=== PATIENT | male | born 1950 | race Caucasian/White ===

== ENCOUNTER 2017-02-08 07:38 | Inpatient (IN) ==
[2017-02-08] MEDS ORDERED: Nitroglycerin 0.4 MG TAB.SUBL SL PRN (10:28)
--- NOTE | 2017-02-08 10:48 | History & Physical Report ---
Date of Encounter: 02/08/17 Time of Encounter: 10:41 24 Hour HP Update - Instructions Instructions: If the History and Physical is less than 30 days old and was completed prior to A.M. admission and or procedure and has NOT been updated on calendar day of procedure please complete this update prior to performing procedure. - Update Patient reports changes in Medical Condition: No Changes in examination, assessment, or condition: No Changes in Medication: No - Attending Attestation Please use eCW encounter from 02/02/[address] Marco Antonio Vargas as H&P. Pt with hx of CAD and symptomatic PAF, presents for antiarrhythmic initiation-- Sotalol. HR this AM 50s at bedside. He is on Coreg 6.25 BID and Nifedipine 30mg daily, both of which he had this AM. Will give decreased dose of Sotalol 40mg this AM since HR is borderline. Will hold Coreg and increase Sotalol to 80mg [id number] starting this evening. Pt will need monitored for 5 doses. Check CBC and BMP. Check daily EKGs to monitor QTc. QTc this AM 398ms, Sinus alysa. Possible PPM if HR will not tolerate antiarrhythmic therapy. Anticoagulated on Pradaxa, recently switched from Coumadin to Pradaxa. Was subtherapeutic in the past month on Coumadin. Previous testing: Lexiscan nuclear stress test 02/26/2016: EF 64%. Negative for ischemia. Holter monitor 01/17/2017: Paroxysmal atrial fibrillation 6.9% of recording time. Rare PVCs and occasional PACs. TTE 01/17/2017: LVEF 55%. Normal LV size and function. Moderate diastolic dysfunction. Normal RV size and function. No significant valvular dysfunction. No pulmonary hypertension.
[2017-02-08 11:20] LABS: Basophils % 0.4 %; Eosinophils # 0.1 K/mcL (0.0-0.6); Eosinophils % 2.4 %; Hematocrit 36.3 % (37.5-50.1); Hemoglobin 12.3 g/dL (12.9-16.9); Immature Granulocytes % 2.8 % (0-4); Immature Platelets 1.7 % (1.1-6.1); Lymphocytes # 1.4 K/mcL (0.6-4.6); Lymphocytes % 27.2 %; Mean Corpuscular HGB Conc 33.9 g/dL (31.6-35.5); Mean Corpuscular Hemoglobin 30.9 pg (28.0-33.3); Mean Corpuscular Volume 91.2 fL (83.0-100.0); Mean Platelet Volume 9.1 fL (9.4-12.4); Monocytes # 0.6 K/mcL (0.0-1.3); Monocytes % 11.7 %; Neutrophils # 2.8 K/mcL (1.6-8.9); Nucleated Red Blood Cells 0.4 /100 WBC (0); Platelet Count 167 K/mcL (140-400); Red Blood Count 3.98 M/mcL (4.19-5.50); Red Cell Distribution Width 16.2 % (11.5-14.5); Segmented Neutrophils % 55.5 %
[2017-02-08 11:26] LABS: BUN/Creatinine Ratio 20 (6-26); Blood Urea Nitrogen 25 mg/dL (8-26); Carbon Dioxide 21 mEq/L (19-29); Chloride 109 mEq/L (98-109); Glucose 100 mg/dL (70-99); Osmolality,Calculated 290 (280-300); Potassium 4.3 mEq/L (3.5-4.5); Sodium 138 mEq/L (136-145); eGFR For African Americans > 60 (> 60); eGFR For Non-African Americans 57 (> 60)
--- NOTE | 2017-02-08 14:47 | Event Note ---
Date of Encounter: 02/08/17 Time of Encounter: 14:44 - Cardiology Event Note Labs resulted. Creatinine 1.27. Creatinine clearance 72.79. Since creatinine clearance is >60, will continue BID dosing of Sotalol. Re-evaluate in AM. Check daily BMPs. Hx of fluctuating renal function.
--- NOTE | 2017-02-08 17:08 | Electrocardiograph Report ---
[place] [address] Test Date: 2017-02-08 Pat Name: Armando Yoon Department: 110 Room: 08 Gender: M Pressurizer: LING : 1950 Requested By: Marco Antonio Vargas Order Number: [id number] Reading MD: Sarah Vargas Measurements Intervals [place] Rate: 50 P: 42 MA: 135 QRS: 66 QRSD: 100 T: 55 QT: 424 QTc: 398 Interpretive Statements SINUS BRADYCARDIA Electronically Signed On 02-08-2017 17:07:21 EDT by Sarah Vargas
[2017-02-08] MEDS: Ranolazine 500 MG TAB.ER.12H PO SCH (21:50)
[2017-02-08] MEDS: Aspirin 81 MG TAB.CHEW PO SCH (21:50)
[2017-02-08] MEDS: *HR* Dabigatran 150 MG CAPSULE PO SCH (21:50)
[2017-02-08] MEDS: Isosorbide MONOnitrate (24 HR) 30 MG TAB.ER.24H PO SCH (21:52)
[2017-02-09 06:22] LABS: BUN/Creatinine Ratio 20 (6-26); Blood Urea Nitrogen 23 mg/dL (8-26); Calcium 8.8 mg/dL (8.6-10.8); Carbon Dioxide 21 mEq/L (19-29); Chloride 110 mEq/L (98-109); Glucose 96 mg/dL (70-99); Osmolality,Calculated 294 (280-300); Potassium 4.2 mEq/L (3.5-4.5); Sodium 140 mEq/L (136-145); eGFR For African Americans > 60 (> 60); eGFR For Non-African Americans > 60 (> 60)
[2017-02-09] MEDS: NIFEdipine XL (24 HR) 30 MG TAB.ER.24 PO SCH (10:11)
[2017-02-09] MEDS: Ranolazine 500 MG TAB.ER.12H PO SCH ×2 (10:11→21:57)
[2017-02-09] MEDS: Isosorbide MONOnitrate (24 HR) 30 MG TAB.ER.24H PO SCH ×2 (10:11→21:57)
[2017-02-09] MEDS: *HR* Dabigatran 150 MG CAPSULE PO SCH ×2 (10:11→21:57)
[2017-02-09] MEDS: Cyanocobalamin (B-12) 1,000 MCG TABLET PO SCH (10:11)
--- NOTE | 2017-02-09 10:14 | Cardiology Progress Note ---
Date of Encounter: 02/09/17 Time of Encounter: 10:11 Assessment and Plan (1) PAF (paroxysmal atrial fibrillation) Current Visit: Yes Status: Acute Admitted for Sotalol initiation for symptomatic PAF. Pt has received 2 doses of Sotalol. Initial dose was 40mg since he was bradycardic and had taken his home dose of Coreg. Increased Sotalol to 80mg [id number] at 2nd dose and beyond. Coreg stopped. On Nifedipine 30mg daily. Pt had episode of PAF ~7PM-9PM last night, has since remained in sinus rhythm. Daily EKGs reviewed. QTc remains <500ms. Will monitor for 5 doses. 5th dose will be tomorrow AM. Creatinine yesterday 1.27, normalized/improved today 1.14. Check BMP in AM. Negative stress test 02/26/16. Echo 01/17/17 EF 55%, no significant valvular dysfunction. 24 hour tele AVG HR 56, lowest HR noted 44. PPM had been discussed if unable to tolerate antiarrhythmic therapy. No need for PPM at this time. Anticoagulated on Pradaxa, recently switched from Coumadin to Pradaxa. Was subtherapeutic in the past month on Coumadin. Tentative discharge in AM. (2) Encounter for monitoring anti-arrhythmic therapy Current Visit: Yes Status: Acute As above. (3) CAD (coronary artery disease) Current Visit: No Status: Chronic Known hx of CAD. ASA, Statin, BB, nitrates. Pt denies chest pain. Negative stress in 2014. Qualifiers: Coronary Disease-Associated Artery/Lesion type: unspecified vessel or lesion type [place] vs. transplanted heart: [place] heart Associated angina: angina presence unspecified Qualified Code(s): I25.10 - Atherosclerotic heart disease of [place] coronary artery without angina pectoris Discussion w patient/family: The assessment and plan as outlined above was discussed with the patient and/or family members who expressed understanding and agreement. All questions were answered. Thank you for involving us in the care of your patient. Please call with any questions. I will discuss all the above with Dr. Marco Antonio Vargas and make changes as necessary. Subjective Principal diagnosis: A-Fib, antiarrhythmic initiation Interval history: Pt reports feeling better than usual this AM. He had episode of A-Fib from ~7PM- 9PM last night. He could tell he was in A-Fib during that time. Has since been in sinus rhythm. Has received 2 doses of Sotalol. Renal function normalized this AM. Objective Vital Signs, Last 4 Hours Temp Pulse Resp BP Pulse Ox 02/09/17 09:58 49 02/09/17 07:40 97.4 F L 53 16 133/73 94 Vital Signs Temp Pulse Resp BP Pulse Ox 02/09/17 09:58 49 02/09/17 07:40 97.4 F L 53 16 133/73 94 02/09/17 04:47 47 16 93 02/09/17 04:13 97.7 F 52 16 130/78 93 02/09/17 00:42 51 17 127/68 93 02/08/17 23:50 98.2 F 56 17 127/68 93 02/08/17 21:36 97.7 F 57 18 93 02/08/17 19:42 97.7 F 79 18 138/91 93 02/08/17 15:52 50 02/08/17 15:20 98.0 F 54 18 139/76 93 02/08/17 11:27 97.2 F L 53 16 122/73 93 02/08/17 10:41 53 94 Intake and Output 02/08/17 02/09/17 02/09/17 23:59 07:59 15:59 Intake Total 500 / 500 480 / 480 Output Total 1350 / 1350 800 / 800 Balance -850 / -850 -320 / -320 Intake: Oral 500 / 500 480 / 480 Output: Urine 1350 / 1350 800 / 800 Other: Meal Breakfast Percent of Meal Consumed 95% Weight 90.1 kg 89.3 kg Patient Weight 02/09/17 23:59 Weight 89.3 kg General: Conversant, No Apparent Distress HEENT: Atraumatic, Normocephaly, Mucus Membranes Moist Neck: No JVD, Normal carotid pulses Cardiac: Reg Rate and Rhythm, Normal S1 and S2, No Murmur Lungs: Normal Breath Sounds, No Wheeze, Rales, Rhonchi Neuro: Alert and responsive, No focal deficits noted Abdomen: Soft, Non-Tender Skin: No rashes noted on visualized skin Musculoskeletal: No Chest Wall Tenderness Extremities: No Clubbing, No Cyanosis, No Edema, Normal Pulses Results 02/08/17 11:04 02/09/17 05:45 Lab Results 05/06/1902/08/17 02/09/17 11:04 11:04 05:45 WBC 5.0 Hgb 12.3 L Hct 36.3 L Plt Count 167 Sodium 138 140 Potassium 4.3 4.2 Chloride 109 110 H Carbon Dioxide 21 21 BUN 25 23 Creatinine 1.27 H 1.14 Glucose 100 H 96 Calcium 9.0 8.8 Short CBC 02/08/17 Range/Units 11:04 WBC 5.0 (4.3-11.1) K/mcL Hgb 12.3 L (12.9-16.9) g/dL Hct 36.3 L (37.5-50.1) % Plt Count 167 (140-400) K/mcL Neutrophils # 2.8 (1.6-8.9) K/mcL BMP 02/09/17 02/08/17 Range/Units 05:45 11:04 Sodium 140 138 (136-145) mEq/L Potassium 4.2 4.3 (3.5-4.5) mEq/L Chloride 110 H 109 (98-109) mEq/L Carbon Dioxide 21 21 (19-29) mEq/L BUN 23 25 (8-26) mg/dL Creatinine 1.14 1.27 H (0.72-1.25) mg/dL Glucose 96 100 H (70-99) mg/dL Calcium 8.8 9.0 (8.6-10.8) mg/dL Active Medications Albuterol Sulfate (Albuterol Inhaler) 2 puff IH Q4HR PRN PRN Reason: Shortness Of Breath Stop: 08/10/17 10:29 Aspirin (Aspirin) 81 mg PO HS [facility] Stop: 08/10/17 21:01 Last Admin: 02/08/17 21:50 Dose: 81 mg Atorvastatin Calcium (Lipitor) 40 mg PO HS [facility] Stop: 08/10/17 21:01 Last Admin: 02/08/17 21:52 Dose: 40 mg Cyanocobalamin (Vitamin B12) 1,000 mcg PO DAILY [facility] Stop: 08/11/17 09:01 Dabigatran (Pradaxa) 150 mg PO BID [facility] Stop: 08/10/17 21:01 Last Admin: 02/08/17 21:50 Dose: 150 mg Isosorbide Mononitrate (Imdur) 30 mg PO BID [facility] Stop: 08/10/17 21:01 Last Admin: 02/08/17 21:52 Dose: 30 mg Montelukast Sodium (Singulair) 10 mg PO HS [facility] Stop: 08/10/17 21:01 Last Admin: 02/08/17 21:51 Dose: 10 mg Nifedipine (Procardia Xl) 30 mg PO DAILY [facility] Stop: 08/11/17 09:01 Nitroglycerin (Nitroglycerin) 0.4 mg SL Q5MIN PRN PRN Reason: Chest Pain Stop: 08/10/17 10:29 Omeprazole (Prilosec) 20 mg PO DAILY [facility] PRN Reason: Protocol Stop: 08/11/17 09:01 Polyethylene Glycol (Miralax) 17 gm PO DAILY PRN PRN Reason: Constipation Stop: 08/10/17 10:29 Ranolazine (Ranexa) 1,000 mg PO BID [facility] Stop: 08/10/17 21:01 Last Admin: 02/08/17 21:50 Dose: 1,000 mg Sertraline HCl (Zoloft) 50 mg PO DAILY [facility] Stop: 08/11/17 09:01 Sotalol HCl (Betapace) 80 mg PO Q12H [facility] Stop: 08/10/17 22:01 Last Admin: 02/08/17 21:51 Dose: 80 mg - Imaging and Cardiology Stress Test: report reviewed Echo: report reviewed - EKG Interpretation EKG results cardiology: other (24 hour tele AVG HR 56. A-Fib 7PM-9PM. Lowest HR 44.) - VTE Reasons for not Prescribing Prophylaxis: Not indicated-Anticoagulated or INR therapeutic Consult Discharge Plan - Plan Referrals: Ana Cristina Hall DO [Primary Care Provider] -
--- NOTE | 2017-02-09 15:25 | Electrocardiograph Report ---
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
--- NOTE | 2017-02-09 15:26 | Electrocardiograph Report ---
[place] [address] Test Date: 2017-02-09 Pat Name: rAmando Yoon Department: 110 Room: 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
[2017-02-09] MEDS: Aspirin 81 MG TAB.CHEW PO SCH (21:57)
[2017-02-10] MEDS: Ranolazine 500 MG TAB.ER.12H PO SCH (09:26)
[2017-02-10] MEDS: *HR* Dabigatran 150 MG CAPSULE PO SCH (09:26)
[2017-02-10] MEDS: NIFEdipine XL (24 HR) 30 MG TAB.ER.24 PO SCH (09:26)
[2017-02-10] MEDS: Isosorbide MONOnitrate (24 HR) 30 MG TAB.ER.24H PO SCH (09:27)
[2017-02-10] MEDS: Cyanocobalamin (B-12) 1,000 MCG TABLET PO SCH (09:27)
[2017-02-10 11:11] VITALS: BP 126/75
--- NOTE | 2017-02-10 12:24 | Discharge Summary ---
Date of Encounter: 02/10/17 Time of Encounter: 09:00 - Discharge Diagnosis (1) PAF (paroxysmal atrial fibrillation) Priority: Primary Status: Acute Comments: s/p admission for sotalol initiation. (2) Encounter for monitoring anti-arrhythmic therapy Priority: Primary Status: Acute (3) CAD (coronary artery disease) Priority: Secondary Status: Chronic Qualifiers: Coronary Disease-Associated Artery/Lesion type: [place] artery [place] vs. transplanted heart: [place] heart Associated angina: without angina Qualified Code(s): I25.10 - Atherosclerotic heart disease of [place] coronary artery without angina pectoris - Discharge Medications Prescriptions: Sotalol [Betapace] 80 mg PO Q12H #60 tablet Home Medications: Atorvastatin [Lipitor] 40 mg PO HS 03/22/16 [History] Isosorbide MONOnitrate (24 HR) [Imdur] 60 mg PO BID 03/22/16 [History] Montelukast [Singulair] 10 mg PO HS 03/22/16 [History] NIFEdipine [Nifedipine ER] 30 mg PO QAM 03/22/16 [History] Nitroglycerin 0.4 mg SL Q5MIN PRN 03/22/16 [History] Omeprazole [PriLOSEC] 20 mg PO DAILY 03/22/16 [History] Polyethylene Glycol 3350 [MiraLAX] 17 gm PO DAILY PRN 03/22/16 [History] Ranolazine [Ranexa] 1,000 mg PO BID 03/22/16 [History] Sertraline [Zoloft] 50 mg PO QAM 03/22/16 [History] Albuterol Sulfate [Albuterol Inhaler] 2 puff IH Q4HR PRN 09/10/16 [History] Aspirin 81 mg PO HS 09/10/16 [History] Cyanocobalamin (Vitamin B-12) [Vitamin B12] 1,000 mcg PO DAILY 02/08/17 [History ] Dabigatran [Pradaxa] 150 mg PO BID 02/08/17 [History] Sotalol [Betapace] 80 mg PO Q12H #60 tablet 02/10/17 [Rx] Allergies/Adverse Reactions: Allergies apixaban [From Eliquis] Allergy (Verified 02/08/17 10:26) Rash Procedures/tests Complete & Pending: Procedures Performed prior 72 hours Category Date Time Status ECG 12 lead ECG [ECG] Routine Y 02/08/17 08:43 Completed ECG 12 lead ECG [ECG] Routine Y 02/08/17 19:12 Completed ECG 12 lead ECG [ECG] Routine Y 02/09/17 00:16 Completed EKG [ECG 12 lead ECG] [ECG] AM 0600 Y 02/09/17 06:00 Completed EKG [ECG 12 lead ECG] [ECG] AM 0600 Y 02/10/17 06:00 Completed Date of admission: 02/08/17 07:38 Primary care physician: Kimmy Manuel Discharging clinician: Michelle Evans Anticipated date of discharge: 02/10/17 - Patient Status Disposition: Home, Self-Care Condition: Good Functional capacity at discharge: independent ambulation Overall status at discharge: patient is back to baseline - Discharge Instructions Follow Up With: Ana Cristina Hall DO [Primary Care Provider] - Marco Antonio Vargas MD [Partnered Physician] - 02/25/17 12:15 pm - Diet and Activity Activity: increase activity as tolerated, resume usual activities as tolerated Diet: low fat, low cholesterol, low salt diet - Hospital Course Hospital course: Mr. Yoon is a 66 year old male who presented to [facility] on 02/08/17 for sotalol initiation due to symptomatic PAF. Coreg was discontinued due to sinus bradycardia. QT/QTc has remained less than 500 ms during hospitalization. Fifth dose of sotalol given this morning, ECG prior to discharge demonstrated QT/QTc of 446,398. Brief episodes of PAF yesterday evening. Telemetry review overnight , avg HR=56 SB, upon exam earlier this morning HR upper 40's--he remained asymptomatic; prior to discharge, HR in the low 60's. SCr stable. He has been anticoagulated on Pradaxa. He has no complaints upon exam this morning and is being prepped for discharge to home in stable condition. He will follow-up with CHELITA Suh, as scheduled on 02/25/17 at 12:15 PM. Instructed to keep BP/HR log at home and bring to follow-up appointment. The patient was discussed and reviewed with Dr. Marco Antonio Vargas who agrees with plan. Encouraged patient to call office with any concerns. - Time Spent with Patient Total time spent providing and/or coordinating discharge services: Less than 30 minutes Specific discharge activities: resume activity as tolerated Physical Examination Vital Signs, Last 4 Hours Temp Pulse Resp BP Pulse Ox 02/10/17 11:09 97.7 F 50 18 126/75 96 02/10/17 11:00 49 General: Conversant, No Apparent Distress HEENT: Atraumatic, Normocephaly, Mucus Membranes Moist Cardiac: Reg Rate and Rhythm, Normal S1 and S2 Lungs: Normal Breath Sounds, No Wheeze, Rales, Rhonchi Neuro: Alert and responsive, No focal deficits noted Abdomen: Soft, Non-Tender Skin: No rashes noted on visualized skin Musculoskeletal: No Chest Wall Tenderness Extremities: No Edema, Normal Pulses - VTE Reasons for not Prescribing Prophylaxis: Not indicated-Anticoagulated or INR therapeutic
--- NOTE | 2017-02-10 15:26 | Electrocardiograph Report ---
[place] [address] Test Date: 2017-02-09 Pat Name: Armando Yoon Department: 110 Room: [facility] Gender: M Medical Dir: [id number] : 1950 Requested By: Isaiah Carrasco Order Number: [id number] Reading MD: Marco Antonio Vargas Measurements Intervals [place] Rate: 46 P: 14 MO: 159 QRS: -10 QRSD: 95 T: 1 QT: 438 QTc: 398 Interpretive Statements SINUS BRADYCARDIA Electronically Signed On 02-10-2017 15:24:49 EDT by Marco Antonio Vargas
--- NOTE | 2017-02-10 15:36 | Electrocardiograph Report ---
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
--- NOTE | 2017-02-10 15:48 | Electrocardiograph Report ---
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
== END 2017-02-10 14:10 | disposition home or self-care (01) | DRG 310 ==
LOC: 2NNU 07:38
PROVIDERS: ADMIT Nurse Practitioner Family; ATTEND Internal Medicine Clinical Cardiac Electrophysiology

== ENCOUNTER 2017-04-25 11:15 | Inpatient (IN) ==
[2017-04-25] MEDS ORDERED: 0.9 % Sodium Chloride 1,000 ML IVC SCH (11:45)
--- NOTE | 2017-04-25 13:46 | Electrophysiology H & P ---
Date of Encounter: 04/25/17 Time of Encounter: 13:41 Assessment and Plan (1) PAF (paroxysmal atrial fibrillation) Current Visit: No Status: Acute The assessment and plan as outlined above was discussed with the patient and/or family members who expressed understanding and agreement. All questions were answered. PAF recurrent despite antiarrythmic. He is quite symptomatic. We discussed ablation and he agrees to proceed. History of Present Illness Chief complaint: Palpitaions, PAF HPI: Mr. Yoon is a 67 year old male with a h/o CAD, HTN and PAF. Recently admitted for sotalol but has continued to have breakthrough episodes. We discussed option for further treatment including an alternate antiarrythmic or atrial fib cryablation. We discussed the cryoablation risks and benefits in detail and he agreed to proceed. Past Med Surg Social Fam HX - Past Medical History Medical history: asthma, atrial fibrillation, coronary artery disease, GERD, hyperlipidemia, hypertension, other Psychiatric history: no psych history - Past Surgical History Surgical History: appendectomy, prostatectomy, other - Social History Smoking Status: Never smoker Smokeless Tobacco Status: No Alcohol use: none Drug use: none - Family History Mother Hx Family Endocrine Disorder: Yes (DM) Medications and Allergies Atorvastatin [Lipitor] 40 mg PO HS 03/22/16 [History] Isosorbide MONOnitrate (24 HR) [Imdur] 30 mg PO BID 03/22/16 [History] Montelukast [Singulair] 10 mg PO HS 03/22/16 [History] NIFEdipine [Nifedipine ER] 30 mg PO QAM 03/22/16 [History] Nitroglycerin 0.4 mg SL Q5MIN PRN 03/22/16 [History] Omeprazole [PriLOSEC] 20 mg PO DAILY 03/22/16 [History] Polyethylene Glycol 3350 [MiraLAX] 17 gm PO DAILY PRN 03/22/16 [History] Ranolazine [Ranexa] 1,000 mg PO BID 03/22/16 [History] Sertraline [Zoloft] 50 mg PO QAM 03/22/16 [History] Albuterol Sulfate [Albuterol Inhaler] 2 puff IH Q4HR PRN 09/10/16 [History] Aspirin 81 mg PO DAILY 09/10/16 [History] Cyanocobalamin (Vitamin B-12) [Vitamin B12] 1,000 mcg PO DAILY 02/08/17 [History ] Dabigatran [Pradaxa] 150 mg PO BID 04/25/17 [History] Sotalol [Betapace] 40 mg PO Q12H 04/25/17 [History] Allergies apixaban [From Eliquis] Allergy (Verified 02/08/17 10:26) Rash All Systems Review: A 10-system review of systems was performed and is negative for pertinent findings except as documented above in the HPI. Physical Examination Vital Signs, Last 4 Hours Temp Pulse Resp BP Pulse Ox 04/25/17 12:08 96.5 F L 47 18 132/80 96 General: Conversant, No Apparent Distress HEENT: Atraumatic, Normocephaly, Mucus Membranes Moist Neck: No JVD, Normal carotid pulses Cardiac: Reg Rate and Rhythm, Normal S1 and S2, No Murmur Lungs: Normal Breath Sounds, No Wheeze, Rales, Rhonchi Neuro: Alert and responsive, No focal deficits noted Abdomen: Soft, Non-Tender Skin: No rashes noted on visualized skin Musculoskeletal: No Chest Wall Tenderness Extremities: No Clubbing, No Cyanosis, No Edema, Normal Pulses Results - EKG Interpretation EKG results cardiology: sinus rhythm
[2017-04-25] MEDS ORDERED: 0.9 % Sodium Chloride 1,000 ML ONE ×3 (13:57→18:11)
[2017-04-25] MEDS ORDERED: Heparin 1,000 UNITS/500 mL NS 1,500 ML ONE (13:58)
[2017-04-25] MEDS ORDERED: *HR* Heparin 10,000 UNIT/10 ML VIAL ONE (13:59)
[2017-04-25] MEDS ORDERED: *HR* FentaNYL (PF) 100 MCG/2 ML VIAL ONE ×2 (14:03→19:08)
[2017-04-25 14:04] LABS: Hematocrit 41.2 % (37.5-50.1); Hemoglobin 13.7 g/dL (12.9-16.9); Mean Corpuscular HGB Conc 33.3 g/dL (31.6-35.5); Mean Corpuscular Hemoglobin 31.6 pg (28.0-33.3); Mean Corpuscular Volume 94.9 fL (83.0-100.0); Mean Platelet Volume 8.5 fL (9.4-12.4); Platelet Count 187 K/mcL (140-400); Red Blood Count 4.34 M/mcL (4.19-5.50); Red Cell Distribution Width 12.9 % (11.5-14.5)
--- NOTE | 2017-04-25 14:06 | Anesthesia Evaluation PreOp ---
Date of Encounter: 04/25/17 Time of Encounter: 14:04 - Past History Planned Operation: Cardiac cryoablation Cardiac History: MS (STEMI 2011 - NO stents/surgery), HTN (maintained on Imdur, Ranexa, Sotalol,, Nifedipine,), Hyperlipidemia (Atorvastatin), Arrhythmia (AFib maintained on Sotalol for rate control, Pradaxa for anticoagulation), Other ( PVDz - 4.2cm AAA followed by Dr. Moran. ECHO 01/17/2017 - AFib, LVEF 55%, Sinus Jesus. 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 Chronic Back pain s/p surgery & SCS) Other Medical History: GERD Anesthesia History: No Prior Anesthetic Complications, Past Anesthesia ( Multiple lumbar surgeries, Appy, Prostatectomy, T&A, B-shoulder surgeries, R- Hip Surgery 03/2016, L-Hip surgery 09/2016) Alcohol Use: none Drug use: none Medications and Allergies Atorvastatin [Lipitor] 40 mg PO HS 03/22/16 [History] Isosorbide MONOnitrate (24 HR) [Imdur] 30 mg PO BID 03/22/16 [History] Montelukast [Singulair] 10 mg PO HS 03/22/16 [History] NIFEdipine [Nifedipine ER] 30 mg PO QAM 03/22/16 [History] Nitroglycerin 0.4 mg SL Q5MIN PRN 03/22/16 [History] Omeprazole [PriLOSEC] 20 mg PO DAILY 03/22/16 [History] Polyethylene Glycol 3350 [MiraLAX] 17 gm PO DAILY PRN 03/22/16 [History] Ranolazine [Ranexa] 1,000 mg PO BID 03/22/16 [History] Sertraline [Zoloft] 50 mg PO QAM 03/22/16 [History] Albuterol Sulfate [Albuterol Inhaler] 2 puff IH Q4HR PRN 09/10/16 [History] Aspirin 81 mg PO DAILY 09/10/16 [History] Cyanocobalamin (Vitamin B-12) [Vitamin B12] 1,000 mcg PO DAILY 02/08/17 [History ] Dabigatran [Pradaxa] 150 mg PO BID 04/25/17 [History] Sotalol [Betapace] 40 mg PO Q12H 04/25/17 [History] Allergies apixaban [From Eliquis] Allergy (Verified 02/08/17 10:26) Rash - Meds/Allergy Pre-op Review Medications Reviewed: Yes Allergies Reviewed: Yes Beta Blockers on Current Med List: Yes (Sotalol) Anesthesia Results - Labs 04/25/17 13:55 04/25/17 13:55 - Imaging EKG: image reviewed Anesthesia Exam O2 Sat Height 1.75 m Height 1.75 m Weight 90.265 kg Weight 90.265 kg O2 Sat by Pulse Oximetry 96 Vital Signs Temp Pulse Resp BP Pulse Ox 96.5 F L 47 18 132/80 96 04/25/17 12:08 04/25/17 12:08 04/25/17 12:08 04/25/17 12:08 04/25/17 12:08 Height: 5'9" Weight: 199# BMI = 30 NPO (# of Hours): MNOc Pain Scale Used: Numeric (1 - 10) - HEENT Pupil (Motor): Pupils equal, EOMI Mallampati: II Oral Opening: Greater than 3 - ANNUAL CAMPAIGN MANAGER LOC: Oriented ANNUAL CAMPAIGN MANAGER Motor: Normal RUE, Normal LUE, Normal RLE, Normal LLE, Normal Face ANNUAL CAMPAIGN MANAGER Sensory: Normal: RUE, LUE, RLE, LLE, Face - Cardiac Rhythm: Regular Murmur: None - Pulmonary Breath Sounds: bilateral Clear Respiratory Effort: Symmetrical Anesthesia Assess/Plan ASA Score: 3 (CAD, PVDz, Asthma, Afib) Anesthetic Plan: General Monitoring Plan: Standard Monitors Recovery Plan: PACU Anes Supervising Prov Stmt: Pt seen/evaluated, R&B discussed, questions answered and consent obtained. Madie Delong MD
[2017-04-25 14:10] LABS: INR 1.3; Prothrombin Time 14.1 Seconds (9.4-12.1)
[2017-04-25 14:15] LABS: BUN/Creatinine Ratio 19 (6-26); Blood Urea Nitrogen 22 mg/dL (8-26); Calcium 9.4 mg/dL (8.6-10.8); Carbon Dioxide 24 mEq/L (19-29); Chloride 109 mEq/L (98-109); Glucose 90 mg/dL (70-99); Osmolality,Calculated 293 (280-300); Sodium 140 mEq/L (136-145); eGFR For African Americans > 60 (> 60); eGFR For Non-African Americans > 60 (> 60)
--- NOTE | 2017-04-25 16:32 | Electrocardiograph Report ---
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
[2017-04-25] MEDS ORDERED: *HR* Promethazine 25 MG/ML VIAL IVP PRN (17:00)
[2017-04-25] MEDS ORDERED: *HR* Morphine 2 MG/ML SYRINGE IVP PRN ×2 (17:00→22:13)
[2017-04-25] MEDS ORDERED: Acetaminophen 325 MG TABLET PO PRN ×2 (17:00→22:13)
[2017-04-25] MEDS ORDERED: Naloxone 0.4 MG/ML INJ IVP PRN (17:00)
[2017-04-25] MEDS ORDERED: Protamine Sulfate 50 MG/5 ML VIAL IVP ONE ×5 (17:02→21:07)
[2017-04-25] MEDS ORDERED: Nitroglycerin 0.4 MG TAB.SUBL SL PRN (17:03)
[2017-04-25] MEDS ORDERED: *HR* Norepinephrine 4 MG/4 ML VIAL IVC ONE (17:59)
[2017-04-25] MEDS ORDERED: *HR* Etomidate 20 MG/10 ML AMPUL IVP ONE (19:40)
[2017-04-25] MEDS ORDERED: *HR* EPINEPHrine 1 MG/ML AMPUL ONE ×2 (19:41→20:04)
[2017-04-25] MEDS ORDERED: *HR* Midazolam HCl 5 MG/5 ML VIAL IVP ONE ×3 (19:42→21:34)
--- NOTE | 2017-04-25 19:42 | Cardiothoracic Consult Note ---
Date of Encounter: 04/25/17 Time of Encounter: 19:40 Assessment and Plan (1) Pericardial effusion with cardiac tamponade Current Visit: Yes Status: Acute The patient is a 67-year-old hypertensive man with known CAD and chronic atrial fibrillation was undergoing a left atrial ablation procedure today. During the procedure the patient was noted to be hypotensive and a transthoracic echocardiogram revealed a large pericardial effusion with tamponade. The patient has been recommended for urgent subxiphoid pericardial window and possible closure of a left atrial laceration/perforation. The patient and the patient's understand the procedure, benefits, alternatives, risks and give their informed consent. The patient's is signing the consent for the patient due to his current postanesthetic state. The assessment and plan as outlined above was discussed with the patient and/or family members who expressed understanding and agreement. All questions were answered. - History of Present Illness Consult date: 04/25/17 Requesting physician: Marco Antonio Vargas Consult reason: Pericardial effusion with acute pericardial tamponade. Chief complaint: Chest pain History of present illness: Mr. Yoon is a 67 year old hypertensive man with known CAD and chronic atrial fibrillation who was undergoing a left atrial appendage ablation in the cardiac catheterization lab today. During the procedure the patient was noted to be hypotensive and a transthoracic echocardiogram revealed a pericardial effusion with tamponade. The patient has been recommended for urgent subxiphoid pericardial window and possible repair of left atrial appendage laceration/ perforation. Past Med Surg Social Fam HX - Past Medical History Medical history: asthma, atrial fibrillation, coronary artery disease, GERD, hyperlipidemia, hypertension, renal disease (CKD, Stage IIIA), other Psychiatric history: no psych history - Past Surgical History Surgical History: appendectomy, cholecystectomy, prostatectomy, other (Left total hip replacement, right total hip replacement) - Social History Smoking Status: Never smoker Smokeless Tobacco Status: No Alcohol use: none Drug use: none Occupational status: retired Current living situation: Home - Independent Activity Level: Independent ambulation Recent Out of Country Travel Within the Last 8 Weeks: No Exposure or Possible Exposure to Illness During Travel: No - Family History Mother Hx Family Endocrine Disorder: Yes (DM) Medications and Allergies Atorvastatin [Lipitor] 40 mg PO HS 03/22/16 [History] Isosorbide MONOnitrate (24 HR) [Imdur] 30 mg PO BID 03/22/16 [History] Montelukast [Singulair] 10 mg PO HS 03/22/16 [History] NIFEdipine [Nifedipine ER] 30 mg PO QAM 03/22/16 [History] Nitroglycerin 0.4 mg SL Q5MIN PRN 03/22/16 [History] Omeprazole [PriLOSEC] 20 mg PO DAILY 03/22/16 [History] Polyethylene Glycol 3350 [MiraLAX] 17 gm PO DAILY PRN 03/22/16 [History] Ranolazine [Ranexa] 1,000 mg PO BID 03/22/16 [History] Sertraline [Zoloft] 50 mg PO QAM 03/22/16 [History] Albuterol Sulfate [Albuterol Inhaler] 2 puff IH Q4HR PRN 09/10/16 [History] Aspirin 81 mg PO DAILY 09/10/16 [History] Cyanocobalamin (Vitamin B-12) [Vitamin B12] 1,000 mcg PO DAILY 02/08/17 [History ] Dabigatran [Pradaxa] 150 mg PO BID 04/25/17 [History] Sotalol [Betapace] 40 mg PO Q12H 04/25/17 [History] Allergies apixaban [From Eliquis] Allergy (Verified 02/08/17 10:26) Rash All Systems Review: A 10-system review of systems was performed and is negative for pertinent findings except as documented above in the HPI. Physical Examination General: Conversant (But sedated from his procedure ( present to verify all information)), Well developed, Well nourished HEENT: Atraumatic, Normocephaly, Trachea midline Neck: No JVD, Normal carotid pulses Cardiac: Reg Rate and Rhythm, Normal S1 and S2, No Murmur Lungs: Normal Breath Sounds, No Wheeze, Rales, Rhonchi Neuro: No focal deficits noted Vascular: Normal capillary refill Abdomen: Soft, Non-tender Extremities: No Clubbing, No Cyanosis, No Edema Results 04/25/17 13:55 04/25/17 13:55 Lab Results, Last 24 hours 04/25/17 04/25/17 04/25/17 13:55 13:55 13:55 WBC 5.4 Hgb 13.7 Hct 41.2 Plt Count 187 INR 1.3 Sodium 140 Potassium 5.0 H Chloride 109 Carbon Dioxide 24 BUN 22 Creatinine 1.17 Glucose 90 Calcium 9.4 Consult Discharge Plan - Plan Referrals: Ana Cristina Hall DO [Primary Care Provider] -
[2017-04-25] MEDS ORDERED: *HR* Rocuronium Bromide 50 MG/5 ML VIAL ONE ×3 (19:43→21:00)
[2017-04-25] MEDS ORDERED: *HR* FentaNYL (PF) 250 MCG/5 ML VIAL ONE (19:43)
[2017-04-25] MEDS ORDERED: Esmolol 100 MG/10 ML VIAL IVP ONE (20:21)
[2017-04-25] MEDS ORDERED: NiCARdipine 2.5 MG/10 ML Syringe IVPB ONE (20:23)
[2017-04-25] MEDS ORDERED: *HR* Dabigatran 150 MG CAPSULE PO SCH (21:00)
--- NOTE | 2017-04-25 22:03 | Operative Note ---
Date of procedure: 04/25/17 Pre-op diagnosis: Pericardial effusion with pericardial tamponade. Post-op diagnosis: same Procedure: 1. Attempted subxiphoid pericardial window. 2. Median sternotomy. 3. Closure of left atrial appendage perforation. Implants: None. Complications: None. Anesthesia: GETA Surgeon: Nivia Hodge Specimen: None. Condition: stable Disposition: ICU Procedure in Detail: INDICATIONS FOR OPERATION: The patient is a 67-year-old hypertensive man with known CAD and chronic atrial fibrillation was undergoing a left atrial ablation procedure today. During the procedure the patient was noted to be hypotensive and a transthoracic echocardiogram revealed a large pericardial effusion with tamponade. He was on high-dose vasopressor support to maintain a systolic blood pressure in the 80s and the catheterization lab. The patient has been recommended for emergent subxiphoid pericardial window and possible closure of a left atrial laceration/ perforation. FINDINGS AT OPERATION: The patient had a large amount of blood within his pericardium. A perforation was noted in the left atrial appendage. No other perforations were noted. DESCRIPTION OF OPERATION: After obtaining informed consent from the patient and the patient's , he was taken to the operating room and placed in the supine position. The patient' s neck, chest, and abdomen were prepped while the patient was awake. This was done in case the patient had a sudden collapse of his blood pressure during induction. A satisfactory general endotracheal anesthetic was then induced. A vertical incision was then made over the xiphoid process and the skin and subcutaneous tissue. The xiphoid process was removed using Metzenbaum scissors and the pericardium was identified. The patient had a large amount of pericardial fat overlying the anterior pericardium and this was resected using electrocautery. The pericardium was a long distance from the tip of the xiphoid region and it was not thought that adequate control of the pericardium and Lasix tube would be easy through this incision. At this point it was determined that the patient would undergo a median sternotomy. A standard median sternotomy incision was then made through the skin and subcutaneous tissue. The sternum was divided and the pericardium opened and reflected laterally. Upon entering the pericardium a large amount of blood ( approximately 500 mL) was rapidly withdrawn. The patient had persistent bleeding which appeared to be coming from the posterior aspect of the heart. The left ventricular apex was then tipped into the sternotomy incision and a perforation was noted in the left atrial appendage. This was closed with a 4-0 Prolene suture using a running technique. No additional perforations are noted. The patient had extensive bleeding from the sternal edges and the subcutaneous tissue since he was fully anticoagulated with Pradaxa preoperatively and had received heparin during the procedure. The patient received FFP and PRBCs to correct the regular up the and anemia respectively. Two chest tubes were placed , one along the diaphragm and one in the anterior mediastinum. The sternum was reapproximated using sternal wires and the pectoralis major fascia, rectus abdominis fascia, subcutaneous tissue, and skin edges were reapproximated using running Vicryl sutures. A negative pressure sterile dressing was applied to the sternotomy incision. The patient was transferred to the ICU in satisfactory postoperative condition. There were no intraoperative complications, and the attachment, needle, and sponge count were correct at end of operation.
[2017-04-25] MEDS ORDERED: Acetaminophen 650 MG RECTAL SUPP RC PRN (22:13)
[2017-04-25] MEDS ORDERED: Insulin LISPRO 300 UNITS/3 ML VIAL SQ PRN (22:13)
[2017-04-25] MEDS ORDERED: Calcium Chloride 1,000 MG in 0.9 % Sodium Chloride 100 ML IVPB PRN (22:13)
[2017-04-25] MEDS ORDERED: Ondansetron 4 MG/2 ML VIAL IVP PRN (22:13)
[2017-04-25] MEDS ORDERED: *HR* Dextrose 50 % in Water (Syg) 50 ML SYRINGE IVP PRN (22:13)
[2017-04-25] MEDS ORDERED: Potassium Chloride 40 MEQ/200 ML BAG IVPB PRN (22:13)
[2017-04-25] MEDS ORDERED: Magnesium Sulfate 2 GM in D5% in Water 100 ML IVPB PRN (22:13)
[2017-04-25] MEDS ORDERED: 0.9 % Sodium Chloride w KCl 20 MEQ/1,000 ML MLS IVC SCH (22:15)
[2017-04-25] MEDS ORDERED: Insulin Human Regular 100 UNIT in 0.9 % Sodium Chloride 100 ML IVC SCH (22:15)
[2017-04-25] MEDS: Isosorbide MONOnitrate (24 HR) 30 MG TAB.ER.24H PO SCH (22:46)
[2017-04-25] MEDS: Ranolazine 500 MG TAB.ER.12H PO SCH (22:46)
[2017-04-25 22:50] LABS: ABG Base Excess -0.9 mEq/L (-2.0 to 3.0); ABG HCO3 26.8 mEQ/L (21-27); ABG Oxygen Saturation 89 % (95-98); ABG PCO2 57 mmHg (35-45); ABG PO2 63 mmHg (85-104); ABG TCO2 28.5 mEq/L (20-26)
[2017-04-25 22:52] LABS: ABG PH 7.28 pH Units (7.32-7.45)
[2017-04-25 23:00] LABS: BUN/Creatinine Ratio 17 (6-26); Blood Urea Nitrogen 21 mg/dL (8-26); Carbon Dioxide 24 mEq/L (19-29); Chloride 113 mEq/L (98-109); Glucose 207 mg/dL (70-99); Magnesium 1.5 mg/dL (1.6-2.6); Osmolality,Calculated 307 (280-300); Potassium 4.1 mEq/L (3.5-4.5); eGFR For African Americans > 60 (> 60); eGFR For Non-African Americans 58 (> 60)
[2017-04-25 23:03] LABS: Calcium 7.9 mg/dL (8.6-10.8)
[2017-04-25 23:05] LABS: Sodium 144 mEq/L (136-145)
[2017-04-26] MEDS: ceFAZolin 2,000 MG in D5% in Water 100 ML IVPB SCH ×2 (00:22→09:12)
[2017-04-26] MEDS: Norepinephrine 4 MG in D5% in Water 250 ML IVC SCH (00:23)
[2017-04-26] MEDS: niCARdipine 40 MG/200 ML MLS IVC SCH ×4 (00:23→15:35)
[2017-04-26] MEDS: Pantoprazole 40 MG VIAL IVP SCH ×2 (00:25→09:13)
[2017-04-26] MEDS: Metoclopramide 10 MG/2 ML VIAL IVP SCH ×4 (00:27→18:13)
[2017-04-26] MEDS: *HR* Morphine 2 MG/ML SYRINGE IVP PRN ×2 (02:16→07:51)
[2017-04-26 02:48] LABS: Basophils % 0.1 %; Hematocrit 25.1 % (37.5-50.1); Immature Granulocytes % 1.4 % (0-4); Lymphocytes # 0.5 K/mcL (0.6-4.6); Lymphocytes % 6.3 %; Mean Corpuscular HGB Conc 34.7 g/dL (31.6-35.5); Mean Corpuscular Hemoglobin 32.2 pg (28.0-33.3); Mean Platelet Volume 8.4 fL (9.4-12.4); Monocytes # 0.5 K/mcL (0.0-1.3); Neutrophils # 6.8 K/mcL (1.6-8.9); Platelet Count 100 K/mcL (140-400); Segmented Neutrophils % 86.2 %
[2017-04-26 02:48] LABS: ABG Base Excess 1.2 mEq/L (-2.0 to 3.0); ABG HCO3 26.6 mEQ/L (21-27); ABG Oxygen Saturation 94 % (95-98); ABG PCO2 45 mmHg (35-45); ABG PO2 73 mmHg (85-104); Blood Gas FiO2 50 %
[2017-04-26 02:49] LABS: ABG PH 7.38 pH Units (7.32-7.45)
[2017-04-26 02:49] LABS: Hemoglobin 8.7 g/dL (12.9-16.9)
[2017-04-26 02:53] LABS: INR 1.4
[2017-04-26 02:56] LABS: Activated Partial Thrombo Time 49.8 Seconds (26.0-36.0)
[2017-04-26 02:59] LABS: Prothrombin Time 14.7 Seconds (9.4-12.1)
[2017-04-26 03:00] LABS: BUN/Creatinine Ratio 17 (6-26); Blood Urea Nitrogen 21 mg/dL (8-26); Calcium 8.5 mg/dL (8.6-10.8); Carbon Dioxide 27 mEq/L (19-29); Chloride 112 mEq/L (98-109); Glucose 153 mg/dL (70-99); Magnesium 2.2 mg/dL (1.6-2.6); Osmolality,Calculated 300 (280-300); Potassium 3.8 mEq/L (3.5-4.5); Sodium 142 mEq/L (136-145); eGFR For African Americans > 60 (> 60); eGFR For Non-African Americans 59 (> 60)
[2017-04-26 03:50] LABS: ABG HCO3 27.7 mEQ/L (21-27); ABG Oxygen Saturation 96 % (95-98); ABG PCO2 48 mmHg (35-45); ABG PO2 82 mmHg (85-104); ABG TCO2 29.2 mEq/L (20-26); Blood Gas FiO2 50 %
[2017-04-26 03:51] LABS: ABG PH 7.37 pH Units (7.32-7.45)
[2017-04-26 05:01] LABS: ABG Base Excess 1.3 mEq/L (-2.0 to 3.0); ABG HCO3 27.5 mEQ/L (21-27); ABG Oxygen Saturation 93 % (95-98); ABG PCO2 51 mmHg (35-45); ABG PO2 72 mmHg (85-104); ABG TCO2 29.1 mEq/L (20-26)
[2017-04-26 05:03] LABS: Blood Gas FiO2 40 %; Blood Gas Liter Flow 5 L/MIN
[2017-04-26 05:04] LABS: ABG PH 7.34 pH Units (7.32-7.45)
[2017-04-26] MEDS ORDERED: Sodium Bicarbonate 50 MEQ/50 ML VIAL IVC ONE (07:52)
--- NOTE | 2017-04-26 07:52 | Cardiothoracic Progress Note ---
Date of Encounter: 04/26/17 Time of Encounter: 07:49 - Assessment and plan (1) Pericardial effusion with cardiac tamponade Current Visit: Yes Status: Acute The patient is recovering well from his median sternotomy with evacuation of pericardial hematoma and closure of left atrial appendage perforation. He is currently extubated and breathing comfortably. His chest tube output has decreased significantly after administration of blood products. The right femoral artery arterial line will be removed. The patient will be monitored in the ICU today. The assessment and plan as outlined above was discussed with the patient and/or family members who expressed understanding and agreement. All questions were answered. - Subjective Procedure(s) Performed: POD#1 S/P Median sternotomy with evacuation of pericardial hematoma and closure of left atrial appendage perforation Interval history: The patient remained hemodynamically stable overnight. He is currently extubated and breathing comfortably. His chest tube output has decreased significantly. Vital Signs, Last 4 Hours Temp Pulse Pulse Pulse Resp BP Pulse Ox 04/26/17 07:00 97.1 F L 65 14 102/52 95 04/26/17 06:53 58 58 04/26/17 06:00 62 14 107/61 94 04/26/17 05:00 97.1 F L 65 16 104/58 92 04/26/17 04:10 57 04/26/17 04:00 56 58 58 14 114/57 92 Oxgyen Flow Rate Oxygen Flow Rate (LPM) 5 Clinical Data, last 8 Hours Output, Chest Tube Drainage 40 Amount [Mediastinal #1] Output, Chest Tube Drainage 0 Amount [Mediastinal #1] Output, Chest Tube Drainage 60 Amount [Mediastinal #1] Output, Chest Tube Drainage 40 Amount [Mediastinal #1] Output, Chest Tube Drainage 100 Amount [Mediastinal #1] Output, Chest Tube Drainage 70 Amount [Mediastinal #1] Output, Chest Tube Drainage 130 Amount [Mediastinal #1] Output, Chest Tube Drainage 450 Amount [Mediastinal #1] Output, Urine Amount 100 Weight 04/24/17 04/25/17 04/26/17 23:59 23:59 23:59 Weight 90.265 kg - Physical Examination General: Conversant, No Apparent Distress Neck: No JVD, Normal carotid pulses Cardiac: Reg Rate and Rhythm, Normal S1 and S2, No Murmur Incision: No signs of infection, Dry/intact dressing Sternum: Stable Chest tubes: Minimal drainage, Other (No air leak.) Lungs: Normal Breath Sounds, No Wheeze, Rales, Rhonchi Neuro: Alert and responsive, No focal deficits noted Vascular: Normal capillary refill Extremities: No Clubbing, No Cyanosis, No Edema - Labs 04/26/17 02:39 04/26/17 02:39 Lab Results, Last 24 hours 04/25/17 04/25/17 04/25/17 13:55 13:55 13:55 WBC 5.4 Hgb 13.7 Hct 41.2 Plt Count 187 INR 1.3 APTT Sodium 140 Potassium 5.0 H Chloride 109 Carbon Dioxide 24 BUN 22 Creatinine 1.17 Glucose 90 Calcium 9.4 Magnesium 04/25/17 04/26/17 04/26/17 22:35 02:39 02:39 WBC 7.9 Hgb 8.7 L D Hct 25.1 L Plt Count 100 L INR 1.4 APTT 49.8 H Sodium 144 Potassium 4.1 Chloride 113 H Carbon Dioxide 24 BUN 21 Creatinine 1.24 Glucose 207 H Calcium 7.9 L D Magnesium 1.5 L 04/26/17 02:39 WBC Hgb Hct Plt Count INR APTT Sodium 142 Potassium 3.8 Chloride 112 H Carbon Dioxide 27 BUN 21 Creatinine 1.23 Glucose 153 H Calcium 8.5 L Magnesium 2.2 - Imaging Chest Xray: image reviewed (Mild cardiomegaly. Right infrahilar atelectasis.) - VTE Reasons for not Prescribing Prophylaxis: Not indicated-Anticoagulated or INR therapeutic Documentation of Mechanical Device: Graduated compression elastic hosiery Consult Discharge Plan - Plan Referrals: Ana Cristina Hall DO [Primary Care Provider] -
[2017-04-26] MEDS ORDERED: *HR* Dextrose 50 % in Water (Syg) 50 ML SYRINGE IVP PRN (07:56)
[2017-04-26] MEDS ORDERED: D5% in Water 1,000 ML IVC PRN (07:56)
[2017-04-26] MEDS ORDERED: Dextrose Gel 15 GM PO PRN ×2 (07:56)
[2017-04-26] MEDS ORDERED: Lidocaine -MPF 4% 5 ML AMPUL TP ONE (08:01)
[2017-04-26] MEDS ORDERED: *HR* Phenylephrine 10 MG/ML VIAL IVC ONE (08:01)
[2017-04-26] MEDS ORDERED: *HR* Succinylcholine 200 MG/10 ML VIAL IVP ONE (08:01)
[2017-04-26] MEDS ORDERED: Ondansetron 4 MG/2 ML VIAL IVP ONE (08:01)
[2017-04-26] MEDS ORDERED: EPHEDrine 50 MG/ML VIAL IVP ONE (08:01)
[2017-04-26] MEDS ORDERED: *HR* Propofol 200 MG/20 ML VIAL IVP ONE (08:01)
--- NOTE | 2017-04-26 08:59 | Anesthesia Evaluation Post Op ---
Date of Encounter: 04/26/17 Time of Encounter: 08:56 - Vital Signs Vital Signs: Selected Entries 04/26/17 07:00 04/26/17 07:30 04/26/17 08:02 Temperature 97.8 F Pulse Rate 65 Respiratory Rate 14 O2 Sat by Pulse Oximetry 95 Oxygen Flow Rate (LPM) 5 - Lungs Lungs: Clear Ascult./Percussion - Airway Airway: Non-obstructed - Cardiovascular Regular Rate - Mental Status Mental Status: Alert & Oriented, Answers Appropriately - Pain Pain Scale: 3 Pain Scale used: Numeric (1 - 10) - Nausea Vomiting Nausea Vomiting: Not Present - Hydration Hydration: Tolerates oral liquids, Ayala catheter Notes: 04/26/17 08:57 Patient doing well s/p sternotomy. No drips currently. Doing well. No apparent anesthesia complications. Will remain in ICU today per Dr Hodge.
[2017-04-26] MEDS: Aspirin 81 MG TAB.CHEW PO SCH (09:13)
[2017-04-26] MEDS: Isosorbide MONOnitrate (24 HR) 30 MG TAB.ER.24H PO SCH ×2 (09:13→21:32)
[2017-04-26] MEDS: NIFEdipine XL (24 HR) 30 MG TAB.ER.24 PO SCH (09:13)
[2017-04-26] MEDS: Ranolazine 500 MG TAB.ER.12H PO SCH ×2 (09:13→21:32)
[2017-04-26] MEDS: Cyanocobalamin (B-12) 1,000 MCG TABLET PO SCH (09:13)
[2017-04-26] MEDS: *HR* OxyCODONE/APAP 5/325 TABLET PO PRN ×2 (11:53→15:35)
[2017-04-26] MEDS: Insulin LISPRO 300 UNITS/3 ML VIAL SQ SCH ×3 (13:36→21:27)
--- NOTE | 2017-04-26 15:00 | Cardiology Progress Note ---
Date of Encounter: 04/26/17 Time of Encounter: 14:53 Assessment and Plan (1) PAF (paroxysmal atrial fibrillation) Current Visit: No Status: Acute PAF recurrent despite antiarrythmic. S/p cryoablation complicated by pericardial effusion. Recently started on sotalol. Anticoagulation on hold. Restart pradaxa once safe from bleeding standpoint. Currently NSR. (2) Pericardial effusion with cardiac tamponade Current Visit: Yes Status: Acute S/p emergent pericardial window and RICARDO laceration repair. Chest tube intact. 1000 ml bloody drainage collected in chest tube. Cardiothoracic surgery following. (3) CAD (coronary artery disease) Current Visit: No Status: Chronic H/o CAD. Negative stress in 2015. Asa, statin, and bb when able. Qualifiers: Coronary Disease-Associated Artery/Lesion type: [place] artery [place] vs. transplanted heart: [place] heart Associated angina: without angina Qualified Code(s): I25.10 - Atherosclerotic heart disease of [place] coronary artery without angina pectoris Discussion w patient/family: The assessment and plan as outlined above was discussed with the patient and/or family members who expressed understanding and agreement. All questions were answered. Thank you for involving us in the care of your patient. Please call with any questions. Subjective Principal diagnosis: afib, pericardial effusion Interval history: Mr. Yoon is currently in the ICU s/p emergent pericardial window and RICARDO laceration repair after developing large pericardial effusion after cryoablation. He was extubated last night. Currently alert and oriented. C/o mild midsternal incisional chest discomfort. Patient just received pain medication. Chest tube intact currently NSR. Objective Vital Signs, Last 4 Hours Temp Pulse Resp BP Pulse Ox 04/26/17 13:00 67 14 124/85 95 04/26/17 12:00 97.9 F 04/26/17 11:57 70 14 110/81 95 04/26/17 11:00 70 14 110/81 95 General: Conversant, No Apparent Distress HEENT: Atraumatic, Normocephaly, Mucus Membranes Moist Neck: No JVD, Normal carotid pulses Cardiac: Reg Rate and Rhythm, Normal S1 and S2, No Murmur, Other (Midsternal vac dressing intact. Chest tube intact with 1000 ml of bloody drainage. ) Lungs: Normal Breath Sounds, No Wheeze, Rales, Rhonchi, Other (diminished bases) Neuro: Alert and responsive, No focal deficits noted Abdomen: Soft, Non-Tender Skin: No rashes noted on visualized skin Extremities: No Clubbing, No Cyanosis, No Edema, Normal Pulses Results 04/26/17 02:39 04/26/17 02:39 Lab Results 04/25/17 04/26/17 04/26/17 22:35 02:39 02:39 WBC 7.9 Hgb 8.7 L D Hct 25.1 L Plt Count 100 L INR 1.4 APTT 49.8 H Sodium 144 Potassium 4.1 Chloride 113 H Carbon Dioxide 24 BUN 21 Creatinine 1.24 Glucose 207 H Calcium 7.9 L D Magnesium 1.5 L 04/26/17 02:39 WBC Hgb Hct Plt Count INR APTT Sodium 142 Potassium 3.8 Chloride 112 H Carbon Dioxide 27 BUN 21 Creatinine 1.23 Glucose 153 H Calcium 8.5 L Magnesium 2.2 - Imaging and Cardiology Echo: report reviewed (Limited echo showed large circumfrential pericardial effusion.) - VTE Reasons for not Prescribing Prophylaxis: Not indicated-Anticoagulated or INR therapeutic Documentation of Mechanical Device: Graduated compression elastic hosiery Consult Discharge Plan - Plan Referrals: Ana Cristina Hall DO [Primary Care Provider] -
--- NOTE | 2017-04-26 17:51 | Electrocardiograph Report ---
[address] [address] Test Date: 2017-04-25 Pat Name: Armando Yoon Department: 109 Room: [facility] Gender: M Nicu Rn: MARJAN : 1950 Requested By: Nivia Hodge Order Number: [id number] Reading MD: Natividad Burton Measurements Intervals [place] Rate: 54 P: 58 SC: 189 QRS: -4 QRSD: 120 T: -10 QT: 527 QTc: 514 Interpretive Statements SINUS BRADYCARDIA INTRAVENTRICULAR CONDUCTION DELAY PROLONGED QT INTERVAL Electronically Signed On 04-26-2017 17:49:46 EDT by Natividad Burton
[2017-04-26] MEDS: Budesonide/Formoterol 80/4.5 MDI IH SCH (20:32)
[2017-04-26] MEDS: Melatonin 3 MG TABLET PO SCH (21:32)
[2017-04-27] MEDS: Metoclopramide 10 MG/2 ML VIAL IVP SCH ×5 (00:29→23:28)
[2017-04-27] MEDS: *HR* Morphine 2 MG/ML SYRINGE IVP PRN (02:29)
[2017-04-27] MEDS: *HR* OxyCODONE/APAP 5/325 TABLET PO PRN (05:27)
[2017-04-27] MEDS: niCARdipine 40 MG/200 ML MLS IVC SCH ×4 (06:04→19:59)
[2017-04-27] MEDS: Norepinephrine 4 MG in D5% in Water 250 ML IVC SCH ×2 (06:04→19:36)
[2017-04-27] MEDS: Insulin LISPRO 300 UNITS/3 ML VIAL SQ SCH ×4 (06:10→19:59)
[2017-04-27 07:46] LABS: Potassium 4.4 mEq/L (3.5-4.5)
[2017-04-27] MEDS: Budesonide/Formoterol 80/4.5 MDI IH SCH (07:55)
[2017-04-27 08:00] LABS: Basophils % 0.3 %; Eosinophils # 0.2 K/mcL (0.0-0.6); Eosinophils % 1.8 %; Hematocrit 24.4 % (37.5-50.1); Hemoglobin 8.2 g/dL (12.9-16.9); Immature Granulocytes % 0.5 % (0-4); Lymphocytes # 1.2 K/mcL (0.6-4.6); Lymphocytes % 11.6 %; Mean Corpuscular HGB Conc 33.6 g/dL (31.6-35.5); Mean Corpuscular Hemoglobin 32.4 pg (28.0-33.3); Mean Corpuscular Volume 96.4 fL (83.0-100.0); Mean Platelet Volume 9.4 fL (9.4-12.4); Monocytes % 9.4 %; Neutrophils # 7.9 K/mcL (1.6-8.9); Nucleated Red Blood Cells 0.3 /100 WBC (0); Platelet Count 143 K/mcL (140-400); Red Blood Count 2.53 M/mcL (4.19-5.50); Red Cell Distribution Width 14.1 % (11.5-14.5); Segmented Neutrophils % 76.4 %
[2017-04-27] MEDS: Aspirin 81 MG TAB.CHEW PO SCH (08:31)
[2017-04-27] MEDS: NIFEdipine XL (24 HR) 30 MG TAB.ER.24 PO SCH (08:31)
[2017-04-27] MEDS: Cyanocobalamin (B-12) 1,000 MCG TABLET PO SCH (08:31)
[2017-04-27] MEDS: Ranolazine 500 MG TAB.ER.12H PO SCH ×2 (08:31→19:59)
[2017-04-27] MEDS: Isosorbide MONOnitrate (24 HR) 30 MG TAB.ER.24H PO SCH ×2 (08:31→19:59)
[2017-04-27] MEDS: Pantoprazole 40 MG VIAL IVP SCH (08:31)
--- NOTE | 2017-04-27 08:38 | Cardiothoracic Progress Note ---
Date of Encounter: 04/27/17 Time of Encounter: 08:35 - Assessment and plan (1) Pericardial effusion with cardiac tamponade Current Visit: Yes Status: Acute The patient is recovering well from his median sternotomy with evacuation of pericardial hematoma and closure of left atrial appendage perforation. His respiratory function has improved somewhat from last night, though he still requires IV flow oxygen to maintain O2 saturations in the low 90s. He will be diuresed today. I have consult the pulmonary/intensive care service to evaluate the patient. His chest tube output has decreased significantly. The patient will be monitored in the ICU today. The assessment and plan as outlined above was discussed with the patient and/or family members who expressed understanding and agreement. All questions were answered. - Subjective Procedure(s) Performed: POD#2 S/P Median sternotomy with evacuation of pericardial hematoma and closure of left atrial appendage perforation Interval history: The patient remained hemodynamically stable overnight. He is oxygen saturations drop last night and required BiPAP and high flow oxygen mask. His oxygen requirement has decreased significantly since last night; however, he still requires O2 6 L/m to maintain O2 saturations in the low 90s. His chest tube output has decreased significantly, though he did have continued drainage yesterday. Vital Signs, Last 4 Hours Temp Pulse Resp BP Pulse Ox 04/27/17 08:00 71 16 125/62 97 04/27/17 07:54 98.6 F 04/27/17 07:47 66 04/27/17 07:00 66 16 117/78 97 04/27/17 06:00 64 16 127/71 97 04/27/17 05:00 69 18 124/65 93 Oxgyen Flow Rate Oxygen Flow Rate (LPM) 6 Clinical Data, last 8 Hours Output, Chest Tube Drainage 0 Amount [Mediastinal #1] Output, Chest Tube Drainage 10 Amount [Mediastinal #1] Output, Chest Tube Drainage 0 Amount [Mediastinal #1] Weight 04/25/17 04/26/17 04/27/17 23:59 23:59 23:59 Weight 90.265 kg 96.02 kg - Physical Examination General: Conversant, No Apparent Distress Neck: No JVD, Normal carotid pulses Cardiac: Reg Rate and Rhythm, Normal S1 and S2, No Murmur Incision: No signs of infection, Dry/intact dressing Sternum: Stable Chest tubes: Minimal drainage, Other (No air leak.) Lungs: Decreased breath sounds Neuro: Alert and responsive, No focal deficits noted Vascular: Normal capillary refill Extremities: No Clubbing, No Cyanosis, No Edema - Labs 04/27/17 07:11 04/27/17 07:11 Lab Results, Last 24 hours 04/27/17 04/27/17 07:11 07:11 WBC 10.4 Hgb 8.2 L Hct 24.4 L Plt Count 143 Sodium 140 Potassium 4.4 Chloride 106 Carbon Dioxide 26 BUN 35 H D Creatinine 1.49 H Glucose 123 H Calcium 9.0 - Imaging Chest Xray: image reviewed (No pneumothorax. Bibasilar atelectasis.) - VTE Reasons for not Prescribing Prophylaxis: Not indicated-Anticoagulated or INR therapeutic Documentation of Mechanical Device: Graduated compression elastic hosiery Consult Discharge Plan - Plan Referrals: Ana Cristina Hall DO [Primary Care Provider] -
--- NOTE | 2017-04-27 09:02 | Cardiology Progress Note ---
Date of Encounter: 04/27/17 Time of Encounter: 08:00 Assessment and Plan (1) PAF (paroxysmal atrial fibrillation) Current Visit: No Status: Acute PAF recurrent despite antiarrythmic. S/p cryoablation 04/25/17. Recently started on sotalol. Predominatly NSR. 10 min afib with RVR overnight. Continue to monitor. Anticoagulation on hold. Discussed restarting pradaxa with Dr. Hodge. Will continue to hold currently until chest tubes removed. Also, continue to monitor Hgb. (2) Pericardial effusion with cardiac tamponade Current Visit: Yes Status: Acute S/p cryoablation with post complication of pericardial effusion. S/p emergent pericardial window and RICARDO laceration repair. Chest tube intact. 1090 ml bloody drainage collected in chest tube. Drainage slowing down. Cardiothoracic surgery following. Appreciate input. (3) CAD (coronary artery disease) Current Visit: No Status: Chronic H/o CAD. Negative stress in 2014. Asa, statin, and bb. Qualifiers: Coronary Disease-Associated Artery/Lesion type: [place] artery [place] vs. transplanted heart: [place] heart Associated angina: without angina Qualified Code(s): I25.10 - Atherosclerotic heart disease of [place] coronary artery without angina pectoris Discussion w patient/family: The assessment and plan as outlined above was discussed with the patient and/or family members who expressed understanding and agreement. All questions were answered. Thank you for involving us in the care of your patient. Please call with any questions. SOB: Increased SOB overnight. Required bipap support. CXR- showed atelectasis. Lasix started. TTE 01/17/17- EF 55%, moderate diastolic dysfunction. No significant valvular disease. May have some acute on chronic diastolic CHF. Continue strict I&O and IV lasix. Monitor BMP. Subjective Principal diagnosis: afib, pericardial effusion Interval history: Mr. Yoon is currently in the ICU s/p emergent pericardial window and RICARDO laceration repair after developing large pericardial effusion after cryoablation 04/25/17. He was extubated shortly after his surgery. Currently alert and oriented. C/o mild midsternal incisional chest discomfort. Patient just received pain medication. Chest tube intact. Currently NSR. Required increase O2 last night. SPO2 decreased and he was placed on bipap. He was started on lasix this morning. Objective Vital Signs, Last 4 Hours Temp Pulse Resp BP Pulse Ox 04/27/17 08:00 71 16 125/62 97 04/27/17 07:54 98.6 F 04/27/17 07:47 66 04/27/17 07:00 66 16 117/78 97 04/27/17 06:00 64 16 127/71 97 General: Conversant, No Apparent Distress HEENT: Atraumatic, Normocephaly, Mucus Membranes Moist Neck: No JVD, Normal carotid pulses Cardiac: Reg Rate and Rhythm, Normal S1 and S2, No Murmur, Other (Chest vac dressing intact. Chest tube intact.) Lungs: Normal Breath Sounds, No Wheeze, Rales, Rhonchi Neuro: Alert and responsive, No focal deficits noted Abdomen: Soft, Non-Tender Skin: No rashes noted on visualized skin Musculoskeletal: No Chest Wall Tenderness Extremities: No Clubbing, No Cyanosis, No Edema, Normal Pulses Results 04/27/17 07:11 04/27/17 07:11 Lab Results 04/27/17 04/27/17 07:11 07:11 WBC 10.4 Hgb 8.2 L Hct 24.4 L Plt Count 143 Sodium 140 Potassium 4.4 Chloride 106 Carbon Dioxide 26 BUN 35 H D Creatinine 1.49 H Glucose 123 H Calcium 9.0 - EKG Interpretation EKG results cardiology: personally reviewed, other (24 hour telemetry review completed.) - VTE Reasons for not Prescribing Prophylaxis: Not indicated-Anticoagulated or INR therapeutic Documentation of Mechanical Device: Graduated compression elastic hosiery Consult Discharge Plan - Plan Referrals: Ana Cristina Hall DO [Primary Care Provider] -
--- NOTE | 2017-04-27 09:14 | Pulmonology Consult Note ---
<Pb Curtis W - Last Filed: 04/27/17 11:03> Date of Encounter: 04/27/17 Medications and Allergies Atorvastatin [Lipitor] 40 mg PO HS 03/22/16 [History] Isosorbide MONOnitrate (24 HR) [Imdur] 30 mg PO BID 03/22/16 [History] Montelukast [Singulair] 10 mg PO HS 03/22/16 [History] NIFEdipine [Nifedipine ER] 30 mg PO QAM 03/22/16 [History] Nitroglycerin 0.4 mg SL Q5MIN PRN 03/22/16 [History] Omeprazole [PriLOSEC] 20 mg PO DAILY 03/22/16 [History] Polyethylene Glycol 3350 [MiraLAX] 17 gm PO DAILY PRN 03/22/16 [History] Ranolazine [Ranexa] 1,000 mg PO BID 03/22/16 [History] Sertraline [Zoloft] 50 mg PO QAM 03/22/16 [History] Albuterol Sulfate [Albuterol Inhaler] 2 puff IH Q4HR PRN 09/10/16 [History] Aspirin 81 mg PO DAILY 09/10/16 [History] Cyanocobalamin (Vitamin B-12) [Vitamin B12] 1,000 mcg PO DAILY 02/08/17 [History ] Dabigatran [Pradaxa] 150 mg PO BID 04/25/17 [History] Sotalol [Betapace] 80 mg PO Q12H 04/25/17 [History] Amoxicillin/Clavulanate [Augmentin] 875 mg PO BIDWM 04/26/17 [History] Budesonide/Formoterol 160/4.5 [Symbicort 160/4.5] 2 puff IH BIDR 04/26/17 [ History] Fluticasone Propionate Nasal [Flonase] 1 spray NS DAILY 04/26/17 [History] Allergies apixaban [From Eliquis] Allergy (Verified 02/08/17 10:26) Rash All Systems: A 10-system review of systems was performed and is negative for pertinent findings except as documented above in the HPI. Physical Examination Vital Signs: Vital Signs, Last 4 Hours Temp Pulse Resp BP Pulse Ox 04/27/17 10:00 101 16 103/79 97 04/27/17 09:00 76 16 102/67 97 04/27/17 08:00 71 16 125/62 97 04/27/17 07:54 98.6 F 04/27/17 07:47 66 Results - Laboratory Findings CBC and BMP: 04/27/17 07:11 04/27/17 07:11 ABG ABG pH 7.41 pH Units (7.32-7.45) 04/27/17 10:36 ABG pCO2 45 mmHg (35-45) 04/27/17 10:36 ABG pO2 68 mmHg (85-104) L 04/27/17 10:36 ABG O2 Saturation 94 % (95-98) L 04/27/17 10:36 PT/INR, D-dimer PT 14.7 Seconds (9.4-12.1) H 04/26/17 02:39 Abnormal lab findings: Abnormal lab results RBC 2.53 M/mcL (4.19-5.50) L 04/27/17 07:11 Hgb 8.2 g/dL (12.9-16.9) L 04/27/17 07:11 Hct 24.4 % (37.5-50.1) L 04/27/17 07:11 Nucleated RBCs/100 WBC 0.3 /100 WBC (0) H 04/27/17 07:11 PT 14.7 Seconds (9.4-12.1) H 04/26/17 02:39 APTT 49.8 Seconds (26.0-36.0) H 04/26/17 02:39 ABG pO2 68 mmHg (85-104) L 04/27/17 10:36 ABG HCO3 28.5 mEQ/L (21-27) H 04/27/17 10:36 ABG Total CO2 29.9 mEq/L (20-26) H 04/27/17 10:36 ABG O2 Saturation 94 % (95-98) L 04/27/17 10:36 ABG Base Excess 3.5 mEq/L (-2.0 to 3.0) H 04/27/17 10:36 BUN 35 mg/dL (8-26) H D 04/27/17 07:11 Creatinine 1.49 mg/dL (0.72-1.25) H 04/27/17 07:11 Est GFR ( Amer) 57 (> 60) L 04/27/17 07:11 Est GFR (Non-Af Amer) 47 (> 60) L 04/27/17 07:11 Glucose 123 mg/dL (70-99) H 04/27/17 07:11 POC Glucose 127 (58-89) H 04/27/17 06:09 - Clinical Findings Intake & Output: Intake & Output 04/26/17 04/27/17 04/27/17 23:59 07:59 15:59 Intake Total 240 / 240 Output Total 1355 / 1355 255 / 255 Balance -1115 / -1115 -255 / -255 Weight 96.02 kg Consult Discharge Plan - Plan Referrals: Ana Cristina Hall DO [Primary Care Provider] - - Attending Attestation I examined this patient and my medical decision-making was reviewed with the Resident Physician. I agree with the documented findings, disposition and treatment plan as described except to the extent set forth below. Patient seen and examined at bedside Labs, radiology, chart personally reviewed. All lines examined without evidence of infection. Management was reviewed during multidisciplinary critical care rounds. Mr. Yoon is 67 years old who suffers from severe COPD and heart failure with preserved ejection fraction had been admitted for left atrial ablation for chronic atrial fibrillation unfortunately this was complicated by left atrial perforation with pericardial tamponade status post pericardial window and repair of Left Atrial laceration. Over the last 48 hours his developed worsening hypoxemia which is in large part related to alveolar hypoventilation from postoperative atelectasis mediated by splinting status post sternotomy and cardiogenic pulmonary edema from heart failure. He is at risk for venous thromboembolism however his WELL's score is low and it is felt that hypoxemia is better explained from have aforementioned causes. In general, it is felt he has very little respiratory reserve that is not necessarily recognized on a day- to-day basis however with significant cardiopulmonary event such as this is becoming clear that he does have advanced lung disease. He does not appear to be suffering from an acute exacerbation of obstructive lung disease. Recs: -Improve lung recruitment with positive airway pressure while laying in bed encouragement of out of bed to chair with frequent use of incentive spirometry and ambulation when safe to do so. Pain control will be crucial for this to be effective. -Agree with planned diuresis for pulmonary edema with goal net -1/2-1 L over the next 12 hours -Restart his home meter dose inhaler and he can have more frequent nebulized bronchodilators on an as needed basis -Use of bilevel positive airway pressure while sleeping at night <Sisi Hernandez - Last Filed: 04/27/17 16:42> Date of Encounter: 04/27/17 Time of Encounter: 09:14 Assessment and Plan (1) COPD (chronic obstructive pulmonary disease) Current Visit: Yes Status: Chronic Patient has a history of COPD that he is just now beginning to manage at home. He does take 2 inhalers and Symbicort. Patient recently had a thoracotomy with pericardial hematoma removal and left atrial appendage perforation fixed. Most of his respiratory status is likely due to hypoventilation due to the recent thoracotomy. He states he does have some pain whenever he takes a deep breath. He denies a cough or sputum production. He is not febrile. His lung sounds are relatively clear however diminished in the bases. His oxygen saturation increases significantly when he is up at bedside. We will encourage this. We will also encourage incident spirometry. We will encourage the use of CPAP while lying down. Plan: Increase Symbicort dose. Albuterol and DuoNeb's CPAP while patient is laying down. Incentive spirometry O2 as needed Increase diuresis Cardiology on board (2) CAD (coronary artery disease) Current Visit: Yes Status: Chronic Management by cardiology Qualifiers: Coronary Disease-Associated Artery/Lesion type: [place] artery [place] vs. transplanted heart: [place] heart Associated angina: without angina Qualified Code(s): I25.10 - Atherosclerotic heart disease of [place] coronary artery without angina pectoris (3) PAF (paroxysmal atrial fibrillation) Current Visit: No Status: Acute Cardiology managing (4) Pericardial effusion with cardiac tamponade Current Visit: Yes Status: Acute Cardiology managing History of Present Illness Consult date: 04/27/17 Requesting physician: Nivia Hodge History of present illness: Patient date to status post cardiac window with pericardial hematoma removal and left atrial appendage perforation fixed. He is a patient of Dr. Allison. We are consult to due to patient's oxygen saturation staying low. He does have a history of COPD. 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 He is maintaining an oxygen saturation in the low 90s to high 80s on 6 L nasal cannula. Intermittently has to have a Ventimask on at 15 L. patient states he uses 2 inhalers and Symbicort at home. Past Med Surg Social Fam HX - Past Medical History Medical history: asthma, atrial fibrillation, coronary artery disease, GERD, hyperlipidemia, hypertension, renal disease, other Psychiatric history: no psych history - Past Surgical History Surgical History: appendectomy, cholecystectomy, prostatectomy, other - Social History Smoking Status: Never smoker Smokeless Tobacco Status: No Alcohol use: none Drug use: none - Family History Mother Hx Family Endocrine Disorder: Yes (DM) All Systems: A 10-system review of systems was performed and is negative for pertinent findings except as documented above in the HPI. - Constitutional Constitutional: no headache(s), no weakness - EENT Nose, mouth and throat: dry mouth, no headache(s) - Cardiovascular Cardiovascular: chest pain (Secondary to the recent thoracotomy.), no dyspnea, no edema - Respiratory Respiratory: other (Patient states pain when he takes a deep breath since his thoracotomy.), no cough, no dyspnea - Gastrointestinal Gastrointestinal: no abdominal pain, no diarrhea, no nausea, no vomiting Physical Examination Vital Signs: Vital Signs, Last 4 Hours Temp Pulse Resp BP Pulse Ox 04/27/17 08:00 71 16 125/62 97 04/27/17 07:54 98.6 F 04/27/17 07:47 66 04/27/17 07:00 66 16 117/78 97 04/27/17 06:00 64 16 127/71 97 General appearance: no acute distress Eyes: nonicteric ENT: oropharynx dry Neck: supple Effort: normal Inspection: normal Auscultation: bilateral: clear, diminished breath sounds (Lower lobes) Cardiovascular: regular rate and rhythm Gastrointestinal: normoactive bowel sounds, soft, non-tender, non-distended Integumentary: normal Extremities: no cyanosis, no edema, pink and warm, pulses normal, other ( Clubbing of the fingernails.) Musculoskeletal: no deformities Gait: normal posture normal mental status, non-focal exam, pupils equal and round mood appropriate, affect normal Results - Laboratory Findings CBC and BMP: 04/27/17 07:11 04/27/17 07:11 ABG ABG pH 7.34 pH Units (7.32-7.45) 04/26/17 04:50 ABG pCO2 51 mmHg (35-45) H 04/26/17 04:50 ABG pO2 72 mmHg (85-104) L 04/26/17 04:50 ABG O2 Saturation 93 % (95-98) L 04/26/17 04:50 PT/INR, D-dimer PT 14.7 Seconds (9.4-12.1) H 04/26/17 02:39 Abnormal lab findings: Abnormal lab results RBC 2.53 M/mcL (4.19-5.50) L 04/27/17 07:11 Hgb 8.2 g/dL (12.9-16.9) L 04/27/17 07:11 Hct 24.4 % (37.5-50.1) L 04/27/17 07:11 Nucleated RBCs/100 WBC 0.3 /100 WBC (0) H 04/27/17 07:11 PT 14.7 Seconds (9.4-12.1) H 04/26/17 02:39 APTT 49.8 Seconds (26.0-36.0) H 04/26/17 02:39 ABG pCO2 51 mmHg (35-45) H 04/26/17 04:50 ABG pO2 72 mmHg (85-104) L 04/26/17 04:50 ABG HCO3 27.5 mEQ/L (21-27) H 04/26/17 04:50 ABG Total CO2 29.1 mEq/L (20-26) H 04/26/17 04:50 ABG O2 Saturation 93 % (95-98) L 04/26/17 04:50 BUN 35 mg/dL (8-26) H D 04/27/17 07:11 Creatinine 1.49 mg/dL (0.72-1.25) H 04/27/17 07:11 Est GFR ( Amer) 57 (> 60) L 04/27/17 07:11 Est GFR (Non-Af Amer) 47 (> 60) L 04/27/17 07:11 Glucose 123 mg/dL (70-99) H 04/27/17 07:11 POC Glucose 127 (58-89) H 04/27/17 06:09 - Clinical Findings Intake & Output: Intake & Output 04/26/17 04/27/17 04/27/17 23:59 07:59 15:59 Intake Total 240 / 240 Output Total 1355 / 1355 255 / 255 Balance -1115 / -1115 -255 / -255 Weight 96.02 kg
[2017-04-27] MEDS: Furosemide 20 MG/2 ML VIAL IVP SCH ×2 (09:31→19:59)
[2017-04-27] MEDS: Budesonide/Formoterol 160/4.5 MDI IH SCH ×2 (09:49→22:53)
[2017-04-27 10:46] LABS: ABG Base Excess 3.5 mEq/L (-2.0 to 3.0); ABG HCO3 28.5 mEQ/L (21-27); ABG Oxygen Saturation 94 % (95-98); ABG PCO2 45 mmHg (35-45); ABG PH 7.41 pH Units (7.32-7.45); ABG PO2 68 mmHg (85-104); ABG TCO2 29.9 mEq/L (20-26)
[2017-04-27 10:47] LABS: Blood Gas Liter Flow 15 L/MIN
[2017-04-27] MEDS: Melatonin 3 MG TABLET PO SCH (19:59)
[2017-04-28 04:33] LABS: Basophils % 0.1 %; Eosinophils # 0.1 K/mcL (0.0-0.6); Eosinophils % 1.2 %; Hematocrit 20.3 % (37.5-50.1); Hemoglobin 6.9 g/dL (12.9-16.9); Immature Granulocytes % 1.2 % (0-4); Lymphocytes # 0.8 K/mcL (0.6-4.6); Lymphocytes % 9.2 %; Mean Corpuscular Hemoglobin 32.2 pg (28.0-33.3); Mean Corpuscular Volume 94.9 fL (83.0-100.0); Mean Platelet Volume 9.3 fL (9.4-12.4); Monocytes # 0.8 K/mcL (0.0-1.3); Monocytes % 9.2 %; Neutrophils # 6.9 K/mcL (1.6-8.9); Nucleated Red Blood Cells 0.5 /100 WBC (0); Platelet Count 131 K/mcL (140-400); Red Blood Count 2.14 M/mcL (4.19-5.50); Red Cell Distribution Width 13.7 % (11.5-14.5); Segmented Neutrophils % 79.1 %
[2017-04-28 04:55] LABS: BUN/Creatinine Ratio 28 (6-26); Blood Urea Nitrogen 35 mg/dL (8-26); Calcium 8.7 mg/dL (8.6-10.8); Carbon Dioxide 29 mEq/L (19-29); Chloride 103 mEq/L (98-109); Glucose 147 mg/dL (70-99); Osmolality,Calculated 297 (280-300); Sodium 138 mEq/L (136-145); eGFR For African Americans > 60 (> 60); eGFR For Non-African Americans 56 (> 60)
[2017-04-28] MEDS: niCARdipine 40 MG/200 ML MLS IVC SCH ×3 (06:08→20:57)
[2017-04-28] MEDS: Metoclopramide 10 MG/2 ML VIAL IVP SCH ×3 (06:13→15:54)
--- NOTE | 2017-04-28 06:37 | Cardiothoracic Progress Note ---
Date of Encounter: 04/28/17 Time of Encounter: 06:32 - Assessment and plan (1) Pericardial effusion with cardiac tamponade Current Visit: Yes Status: Acute The patient is recovering well from his median sternotomy with evacuation of pericardial hematoma and closure of left atrial appendage perforation. His chest tubes were removed. The patient will continue with aggressive pulmonary toilet. He'll be transfused with 1 unit PRBCs for a decreased H&H and his underlying respiratory sufficiency/emphysema. The patient will be monitored in the ICU today. The assessment and plan as outlined above was discussed with the patient and/or family members who expressed understanding and agreement. All questions were answered. - Subjective Procedure(s) Performed: POD#3 S/P Median sternotomy with evacuation of pericardial hematoma and closure of left atrial appendage perforation Interval history: The patient remained hemodynamically stable overnight. He is worried function is improving slowly. His chest tube output has decreased significantly. Vital Signs, Last 4 Hours Temp Pulse Resp BP Pulse Ox 04/28/17 06:00 65 20 122/64 98 04/28/17 05:09 18 117/64 94 04/28/17 05:00 66 18 119/63 96 04/28/17 04:21 99.7 F H 04/28/17 04:00 64 04/28/17 03:00 64 17 109/67 92 Oxgyen Flow Rate Oxygen Flow Rate (LPM) 12 Clinical Data, last 8 Hours Output, Chest Tube Drainage 0 Amount [Mediastinal #1] Weight 04/26/17 04/27/17 04/28/17 23:59 23:59 23:59 Weight 96.02 kg 96 kg - Physical Examination General: Conversant, No Apparent Distress Neck: No JVD, Normal carotid pulses Cardiac: Reg Rate and Rhythm, Normal S1 and S2, No Murmur Incision: No signs of infection, Dry/intact dressing Sternum: Stable Chest tubes: Minimal drainage Lungs: Normal Breath Sounds, No Wheeze, Rales, Rhonchi Neuro: Alert and responsive, No focal deficits noted Vascular: Normal capillary refill Extremities: No Clubbing, No Cyanosis, No Edema - Labs 04/28/17 03:00 04/28/17 03:00 Lab Results, Last 24 hours 04/27/17 04/27/17 04/28/17 07:11 07:11 03:00 WBC 10.4 8.7 Hgb 8.2 L 6.9 L Hct 24.4 L 20.3 L Plt Count 143 131 L Sodium 140 Potassium 4.4 Chloride 106 Carbon Dioxide 26 BUN 35 H D Creatinine 1.49 H Glucose 123 H Calcium 9.0 04/28/17 03:00 WBC Hgb Hct Plt Count Sodium 138 Potassium 4.0 Chloride 103 Carbon Dioxide 29 BUN 35 H Creatinine 1.27 H Glucose 147 H Calcium 8.7 - Imaging Chest Xray: image reviewed (No pneumothorax. Persistent bibasilar atelectasis.) - VTE Reasons for not Prescribing Prophylaxis: Not indicated-Anticoagulated or INR therapeutic Documentation of Mechanical Device: Graduated compression elastic hosiery Consult Discharge Plan - Plan Referrals: Ana Cristina Hall DO [Primary Care Provider] -
[2017-04-28] MEDS: Isosorbide MONOnitrate (24 HR) 30 MG TAB.ER.24H PO SCH ×2 (07:26→20:56)
[2017-04-28] MEDS: Pantoprazole 40 MG VIAL IVP SCH (07:26)
[2017-04-28] MEDS: NIFEdipine XL (24 HR) 30 MG TAB.ER.24 PO SCH (07:26)
[2017-04-28] MEDS: Furosemide 20 MG/2 ML VIAL IVP SCH ×2 (07:26→20:56)
[2017-04-28] MEDS: Ranolazine 500 MG TAB.ER.12H PO SCH ×2 (07:27→20:56)
[2017-04-28] MEDS: Aspirin 81 MG TAB.CHEW PO SCH (07:27)
[2017-04-28] MEDS: Cyanocobalamin (B-12) 1,000 MCG TABLET PO SCH (07:27)
[2017-04-28] MEDS: Insulin LISPRO 300 UNITS/3 ML VIAL SQ SCH ×4 (07:43→20:56)
[2017-04-28] MEDS: Budesonide/Formoterol 160/4.5 MDI IH SCH ×2 (07:53→20:00)
--- NOTE | 2017-04-28 08:47 | Cardiology Progress Note ---
Date of Encounter: 04/28/17 Time of Encounter: 08:45 Assessment and Plan (1) PAF (paroxysmal atrial fibrillation) Current Visit: No Status: Acute PAF recurrent despite antiarrythmic. S/p cryoablation 04/25/17. Recently started on sotalol during previous admission. Will repeat EKG later today. Predominatly NSR. Avg HR 67 bpm. PAF this am when transferring to chair. Now NSR. Denies symptoms. Continue to monitor. Anticoagulation on hold. Discussed restarting pradaxa with Dr. Hodge. Will continue to hold for a couple days post CT removal. Blood transfusion today for acute blood loss anemia. (2) Pericardial effusion with cardiac tamponade Current Visit: Yes Status: Acute S/p cryoablation with post complication of pericardial effusion with tamponade. S/p emergent pericardial window and RICARDO laceration repair. Chest tube removed this morning. CXR with no pnuemothorax. Cardiothoracic surgery following. Appreciate input. (3) CAD (coronary artery disease) Current Visit: Yes Status: Chronic H/o CAD. Negative stress in 2014. Asa, statin, and bb. Qualifiers: Coronary Disease-Associated Artery/Lesion type: [place] artery [place] vs. transplanted heart: [place] heart Associated angina: without angina Qualified Code(s): I25.10 - Atherosclerotic heart disease of [place] coronary artery without angina pectoris (4) Acute blood loss anemia Current Visit: No Status: Acute (5) Diastolic dysfunction with acute on chronic heart failure Current Visit: Yes Status: Acute SOB improved. Likely multifactoral with atelectasis with shallow breathing, severe anemia, and diastolic dysfunction. TTE 01/17/17- EF 55%, moderate diastolic dysfunction. No significant valvular disease. CXR- showed atelectasis. Lasix started yesterday. Net negative 4997. Continues to require high flow oxygen. Appreciate pulmonology input. Continue strict I&O and IV lasix. Monitor BMP. Discussion w patient/family: The assessment and plan as outlined above was discussed with the patient and/or family members who expressed understanding and agreement. All questions were answered. Thank you for involving us in the care of your patient. Please call with any questions. Subjective Principal diagnosis: afib, pericardial effusion Interval history: Mr. Yoon is sitting up in his chair. Denies chest pain or palpitations. PAF seen this morning. Currently NSR. Planning for 1 unit PRBC for anemia, Hgb 6.9. Chest tubes removed this a. m. Objective Vital Signs, Last 4 Hours Temp Pulse Resp BP Pulse Ox 04/28/17 08:00 70 20 100/85 95 04/28/17 07:53 16 100 04/28/17 07:41 98.8 F 04/28/17 07:30 69 04/28/17 07:00 63 14 126/63 95 04/28/17 06:00 65 20 122/64 98 04/28/17 05:09 18 117/64 94 04/28/17 05:00 66 18 119/63 96 General: Conversant, No Apparent Distress HEENT: Atraumatic, Normocephaly, Mucus Membranes Moist Neck: No JVD, Normal carotid pulses Cardiac: Reg Rate and Rhythm, Normal S1 and S2, No Murmur, Other (Midsternal incision covered with vac dressing. Old blood seen on dressing. Chest tube dressing intact with small amount of old bloody drainage. ) Lungs: Normal Breath Sounds, No Wheeze, Rales, Rhonchi, Other (Diminished bases with shallow respirations. ) Neuro: Alert and responsive, No focal deficits noted Abdomen: Soft, Non-Tender Skin: No rashes noted on visualized skin Musculoskeletal: No Chest Wall Tenderness Extremities: No Clubbing, No Cyanosis, No Edema, Normal Pulses, Other ( Compression stockings on. ) Results 04/28/17 03:00 04/28/17 03:00 Lab Results 04/28/17 04/28/17 03:00 03:00 WBC 8.7 Hgb 6.9 L Hct 20.3 L Plt Count 131 L Sodium 138 Potassium 4.0 Chloride 103 Carbon Dioxide 29 BUN 35 H Creatinine 1.27 H Glucose 147 H Calcium 8.7 - EKG Interpretation EKG results cardiology: personally reviewed (Initial EKG from 04/25/17 shows . Will repeat EKG today.) - VTE Reasons for not Prescribing Prophylaxis: Not indicated-Anticoagulated or INR therapeutic Documentation of Mechanical Device: Graduated compression elastic hosiery Consult Discharge Plan - Plan Referrals: Ana Cristina Hall DO [Primary Care Provider] -
--- NOTE | 2017-04-28 09:08 | Pulmonology Consult Note ---
Date of Encounter: 04/28/17 Time of Encounter: 09:08 Assessment and Plan (1) COPD (chronic obstructive pulmonary disease) Current Visit: Yes Status: Chronic (2) CAD (coronary artery disease) Current Visit: Yes Status: Chronic Qualifiers: Coronary Disease-Associated Artery/Lesion type: [place] artery [place] vs. transplanted heart: [place] heart Associated angina: without angina Qualified Code(s): I25.10 - Atherosclerotic heart disease of [place] coronary artery without angina pectoris (3) PAF (paroxysmal atrial fibrillation) Current Visit: No Status: Acute (4) Pericardial effusion with cardiac tamponade Current Visit: Yes Status: Acute Past Med Surg Social Fam HX - Past Medical History Medical history: asthma, atrial fibrillation, coronary artery disease, GERD, hyperlipidemia, hypertension, renal disease, other Psychiatric history: no psych history - Past Surgical History Surgical History: appendectomy, cholecystectomy, prostatectomy, other - Social History Smoking Status: Never smoker Smokeless Tobacco Status: No Alcohol use: none Drug use: none - Family History Mother Hx Family Endocrine Disorder: Yes (DM) Medications and Allergies Atorvastatin [Lipitor] 40 mg PO HS 03/22/16 [History] Isosorbide MONOnitrate (24 HR) [Imdur] 30 mg PO BID 03/22/16 [History] Montelukast [Singulair] 10 mg PO HS 03/22/16 [History] NIFEdipine [Nifedipine ER] 30 mg PO QAM 03/22/16 [History] Nitroglycerin 0.4 mg SL Q5MIN PRN 03/22/16 [History] Omeprazole [PriLOSEC] 20 mg PO DAILY 03/22/16 [History] Polyethylene Glycol 3350 [MiraLAX] 17 gm PO DAILY PRN 03/22/16 [History] Ranolazine [Ranexa] 1,000 mg PO BID 03/22/16 [History] Sertraline [Zoloft] 50 mg PO QAM 03/22/16 [History] Albuterol Sulfate [Albuterol Inhaler] 2 puff IH Q4HR PRN 09/10/16 [History] Aspirin 81 mg PO DAILY 09/10/16 [History] Cyanocobalamin (Vitamin B-12) [Vitamin B12] 1,000 mcg PO DAILY 02/08/17 [History ] Dabigatran [Pradaxa] 150 mg PO BID 04/25/17 [History] Sotalol [Betapace] 80 mg PO Q12H 04/25/17 [History] Amoxicillin/Clavulanate [Augmentin] 875 mg PO BIDWM 04/26/17 [History] Budesonide/Formoterol 160/4.5 [Symbicort 160/4.5] 2 puff IH BIDR 04/26/17 [ History] Fluticasone Propionate Nasal [Flonase] 1 spray NS DAILY 04/26/17 [History] Allergies apixaban [From Eliquis] Allergy (Verified 02/08/17 10:26) Rash All Systems: A 10-system review of systems was performed and is negative for pertinent findings except as documented above in the HPI. Physical Examination Vital Signs: Vital Signs, Last 4 Hours Temp Pulse Resp BP Pulse Ox 04/28/17 09:00 67 20 113/68 96 04/28/17 08:00 70 20 100/85 95 04/28/17 07:53 16 100 04/28/17 07:41 98.8 F 04/28/17 07:30 69 04/28/17 07:00 63 14 126/63 95 04/28/17 06:00 65 20 122/64 98 04/28/17 05:09 18 117/64 94 Results - Laboratory Findings CBC and BMP: 04/28/17 03:00 04/28/17 03:00 ABG ABG pH 7.41 pH Units (7.32-7.45) 04/27/17 10:36 ABG pCO2 45 mmHg (35-45) 04/27/17 10:36 ABG pO2 68 mmHg (85-104) L 04/27/17 10:36 ABG O2 Saturation 94 % (95-98) L 04/27/17 10:36 PT/INR, D-dimer PT 14.7 Seconds (9.4-12.1) H 04/26/17 02:39 Abnormal lab findings: Abnormal lab results RBC 2.14 M/mcL (4.19-5.50) L 04/28/17 03:00 Hgb 6.9 g/dL (12.9-16.9) L 04/28/17 03:00 Hct 20.3 % (37.5-50.1) L 04/28/17 03:00 Plt Count 131 K/mcL (140-400) L 04/28/17 03:00 MPV 9.3 fL (9.4-12.4) L 04/28/17 03:00 Nucleated RBCs/100 WBC 0.5 /100 WBC (0) H 04/28/17 03:00 PT 14.7 Seconds (9.4-12.1) H 04/26/17 02:39 APTT 49.8 Seconds (26.0-36.0) H 04/26/17 02:39 ABG pO2 68 mmHg (85-104) L 04/27/17 10:36 ABG HCO3 28.5 mEQ/L (21-27) H 04/27/17 10:36 ABG Total CO2 29.9 mEq/L (20-26) H 04/27/17 10:36 ABG O2 Saturation 94 % (95-98) L 04/27/17 10:36 ABG Base Excess 3.5 mEq/L (-2.0 to 3.0) H 04/27/17 10:36 BUN 35 mg/dL (8-26) H 04/28/17 03:00 Creatinine 1.27 mg/dL (0.72-1.25) H 04/28/17 03:00 Est GFR (Non-Af Amer) 56 (> 60) L 04/28/17 03:00 BUN/Creatinine Ratio 28 (6-26) H 04/28/17 03:00 Glucose 147 mg/dL (70-99) H 04/28/17 03:00 POC Glucose 142 (58-89) H 04/28/17 07:36 - Clinical Findings Intake & Output: Intake & Output 04/27/17 04/28/17 04/28/17 23:59 07:59 15:59 Intake Total 120 / 120 Output Total 990 / 990 175 / 175 Balance -990 / -990 -175 / -175 120 / 120 Weight 96 kg Consult Discharge Plan - Plan Referrals: Ana Cristina Hall DO [Primary Care Provider] -
--- NOTE | 2017-04-28 09:09 | Pulmonology Progress Note ---
<Sisi Hernandez - Last Filed: 04/28/17 14:08> Date of Encounter: 04/28/17 Time of Encounter: 09:08 Assessment and Plan (1) COPD (chronic obstructive pulmonary disease) Current Visit: Yes Status: Chronic Patient has a history of COPD that he is just now beginning to manage at home. He does take 2 inhalers and Symbicort. Patient recently had a thoracotomy with pericardial hematoma removal and left atrial appendage perforation fixed. Most of his respiratory status is likely due to hypoventilation due to the recent thoracotomy. He states he does have some pain whenever he takes a deep breath. He denies a cough or sputum production. He is not febrile. His lung sounds are relatively clear however diminished in the bases. His oxygen saturation increases significantly when he is up at bedside. We will encourage this. We will also encourage incident spirometry. We will encourage the use of CPAP while lying down. Plan: Symbicort Albuterol and DuoNeb's CPAP while patient is in bed. Incentive spirometry O2 as needed Continue diuresis today Cardiology managing. Qualifiers: Qualified Code(s): J44.9 - Chronic obstructive pulmonary disease, unspecified (2) CAD (coronary artery disease) Current Visit: Yes Status: Chronic Cardiology managing Qualifiers: Coronary Disease-Associated Artery/Lesion type: [place] artery [place] vs. transplanted heart: [place] heart Associated angina: without angina Qualified Code(s): I25.10 - Atherosclerotic heart disease of [place] coronary artery without angina pectoris (3) PAF (paroxysmal atrial fibrillation) Current Visit: No Status: Acute Cardiology managing (4) Pericardial effusion with cardiac tamponade Current Visit: Yes Status: Acute Cardiology managing Subjective Principal diagnosis: afib, pericardial effusion Interval history: No evidence overnight. Patient did wear his BiPAP overnight. States that he is using his incentive spirometry. Lung sounds relatively clear. He has no complaints. Still maintaining an oxygen saturation in the low to mid 90s on a Ventimask. However with patient is at the bedside his oxygen saturation increases significantly. It still appears as if the patient is having his hypoxemic events due to hypoventilation secondary to the recent thoracotomy. Objective PUL Vital signs: Last Vital Signs Temp 98.8 F 04/28/17 07:41 Pulse 67 04/28/17 09:00 Resp 20 04/28/17 09:00 BP 113/68 04/28/17 09:00 Pulse Ox 96 04/28/17 09:00 General appearance: no acute distress Eyes: nonicteric ENT: oropharynx moist Neck: supple Effort: normal Auscultation: bilateral: clear, diminished breath sounds (Lower lobes bilaterally) Cardiovascular: regular rate and rhythm Gastrointestinal: normoactive bowel sounds, soft, non-tender, non-distended Integumentary: normal Extremities: no cyanosis, no edema, pink and warm, no ischemia or petechiae, other (Clubbing to fingernails bilaterally.) Musculoskeletal: no deformities Gait: normal posture normal mental status, non-focal exam, pupils equal and round, CN II-XII normal, motor strength normal and symmetric mood appropriate, affect normal Results - Laboratory Findings CBC and BMP: 04/28/17 03:00 04/28/17 03:00 ABG ABG pH 7.41 pH Units (7.32-7.45) 04/27/17 10:36 ABG pCO2 45 mmHg (35-45) 04/27/17 10:36 ABG pO2 68 mmHg (85-104) L 04/27/17 10:36 ABG O2 Saturation 94 % (95-98) L 04/27/17 10:36 PT/INR, D-dimer PT 14.7 Seconds (9.4-12.1) H 04/26/17 02:39 Abnormal lab findings: Abnormal lab results RBC 2.14 M/mcL (4.19-5.50) L 04/28/17 03:00 Hgb 6.9 g/dL (12.9-16.9) L 04/28/17 03:00 Hct 20.3 % (37.5-50.1) L 04/28/17 03:00 Plt Count 131 K/mcL (140-400) L 04/28/17 03:00 MPV 9.3 fL (9.4-12.4) L 04/28/17 03:00 Nucleated RBCs/100 WBC 0.5 /100 WBC (0) H 04/28/17 03:00 PT 14.7 Seconds (9.4-12.1) H 04/26/17 02:39 APTT 49.8 Seconds (26.0-36.0) H 04/26/17 02:39 ABG pO2 68 mmHg (85-104) L 04/27/17 10:36 ABG HCO3 28.5 mEQ/L (21-27) H 04/27/17 10:36 ABG Total CO2 29.9 mEq/L (20-26) H 04/27/17 10:36 ABG O2 Saturation 94 % (95-98) L 04/27/17 10:36 ABG Base Excess 3.5 mEq/L (-2.0 to 3.0) H 04/27/17 10:36 BUN 35 mg/dL (8-26) H 04/28/17 03:00 Creatinine 1.27 mg/dL (0.72-1.25) H 04/28/17 03:00 Est GFR (Non-Af Amer) 56 (> 60) L 04/28/17 03:00 BUN/Creatinine Ratio 28 (6-26) H 04/28/17 03:00 Glucose 147 mg/dL (70-99) H 04/28/17 03:00 POC Glucose 142 (58-89) H 04/28/17 07:36 - Clinical Findings Intake & Output: Intake & Output 04/27/17 04/28/17 04/28/17 23:59 07:59 15:59 Intake Total 120 / 120 Output Total 990 / 990 175 / 175 Balance -990 / -990 -175 / -175 120 / 120 Weight 96 kg - VTE Reasons for not Prescribing Prophylaxis: Not indicated-Anticoagulated or INR therapeutic Documentation of Mechanical Device: Graduated compression elastic hosiery Consult Discharge Plan - Plan Referrals: Ana Cristina Hall, DO [Primary Care Provider] - <Pb Curtis - Last Filed: 04/28/17 14:25> Date of Encounter: 04/28/17 Objective PUL Vital signs: Last Vital Signs Temp 98.6 F 04/28/17 13:47 Pulse 85 04/28/17 14:00 Resp 18 04/28/17 14:00 BP 136/84 04/28/17 14:00 Pulse Ox 95 04/28/17 14:00 Results - Laboratory Findings CBC and BMP: 04/28/17 03:00 04/28/17 03:00 ABG ABG pH 7.41 pH Units (7.32-7.45) 04/27/17 10:36 ABG pCO2 45 mmHg (35-45) 04/27/17 10:36 ABG pO2 68 mmHg (85-104) L 04/27/17 10:36 ABG O2 Saturation 94 % (95-98) L 04/27/17 10:36 PT/INR, D-dimer PT 14.7 Seconds (9.4-12.1) H 04/26/17 02:39 Abnormal lab findings: Abnormal lab results RBC 2.14 M/mcL (4.19-5.50) L 04/28/17 03:00 Hgb 6.9 g/dL (12.9-16.9) L 04/28/17 03:00 Hct 20.3 % (37.5-50.1) L 04/28/17 03:00 Plt Count 131 K/mcL (140-400) L 04/28/17 03:00 MPV 9.3 fL (9.4-12.4) L 04/28/17 03:00 Nucleated RBCs/100 WBC 0.5 /100 WBC (0) H 04/28/17 03:00 PT 14.7 Seconds (9.4-12.1) H 04/26/17 02:39 APTT 49.8 Seconds (26.0-36.0) H 04/26/17 02:39 ABG pO2 68 mmHg (85-104) L 04/27/17 10:36 ABG HCO3 28.5 mEQ/L (21-27) H 04/27/17 10:36 ABG Total CO2 29.9 mEq/L (20-26) H 04/27/17 10:36 ABG O2 Saturation 94 % (95-98) L 04/27/17 10:36 ABG Base Excess 3.5 mEq/L (-2.0 to 3.0) H 04/27/17 10:36 BUN 35 mg/dL (8-26) H 04/28/17 03:00 Creatinine 1.27 mg/dL (0.72-1.25) H 04/28/17 03:00 Est GFR (Non-Af Amer) 56 (> 60) L 04/28/17 03:00 BUN/Creatinine Ratio 28 (6-26) H 04/28/17 03:00 Glucose 147 mg/dL (70-99) H 04/28/17 03:00 POC Glucose 155 (58-89) H 04/28/17 11:45 - Clinical Findings Intake & Output: Intake & Output 04/27/17 04/28/17 04/28/17 23:59 07:59 15:59 Intake Total 378 / 378 Output Total 990 / 990 175 / 175 250 / 250 Balance -990 / -990 -175 / -175 128 / 128 Weight 96 kg - Attending Attestation I examined this patient and my medical decision-making was reviewed with the Resident Physician. I agree with the documented findings, disposition and treatment plan as described except to the extent set forth below. Patient seen and examined at bedside Labs, radiology, chart personally reviewed. Management was reviewed during multidisciplinary critical care rounds. Postoperative hypoxia has improved some overnight with diuresis, incentive spirometry, along with positive airway pressure. We are administering his combination inhaled corticosteroid/long-acting beta agonist and short acting bronchodilators as needed He will be transfused a unit of blood for postoperative anemia Plan to continue to encourage out of bed to chair and ambulation here when tolerated and seems to do so Stable for transfer from pulmonary standpoint to medical telemetry unit for ongoing care
[2017-04-28] MEDS ORDERED: Furosemide 20 MG/2 ML VIAL IVP ONE (10:53)
[2017-04-28] MEDS ORDERED: 0.9 % Sodium Chloride 250 ML ONE (11:17)
[2017-04-28 17:32] LABS: Hematocrit 24.9 % (37.5-50.1)
[2017-04-28 17:38] LABS: Hemoglobin 8.8 g/dL (12.9-16.9)
[2017-04-28] MEDS: Melatonin 3 MG TABLET PO SCH (20:56)
[2017-04-28] MEDS: Norepinephrine 4 MG in D5% in Water 250 ML IVC SCH (20:57)
[2017-04-29] MEDS: Metoclopramide 10 MG/2 ML VIAL IVP SCH (00:38)
[2017-04-29 04:15] LABS: Basophils % 0.2 %; Eosinophils # 0.1 K/mcL (0.0-0.6); Eosinophils % 1.8 %; Hematocrit 24.8 % (37.5-50.1); Hemoglobin 8.7 g/dL (12.9-16.9); Immature Granulocytes % 0.9 % (0-4); Lymphocytes # 0.8 K/mcL (0.6-4.6); Lymphocytes % 14.3 %; Mean Corpuscular HGB Conc 35.1 g/dL (31.6-35.5); Mean Corpuscular Hemoglobin 32.2 pg (28.0-33.3); Mean Corpuscular Volume 91.9 fL (83.0-100.0); Mean Platelet Volume 9.1 fL (9.4-12.4); Monocytes # 0.8 K/mcL (0.0-1.3); Monocytes % 14.9 %; Nucleated Red Blood Cells 1.4 /100 WBC (0); Platelet Count 161 K/mcL (140-400); Red Cell Distribution Width 13.8 % (11.5-14.5); Segmented Neutrophils % 67.9 %
[2017-04-29 04:28] LABS: Neutrophils # 3.7 K/mcL (1.6-8.9)
[2017-04-29 04:39] LABS: BUN/Creatinine Ratio 23 (6-26); Blood Urea Nitrogen 31 mg/dL (8-26); Calcium 9.2 mg/dL (8.6-10.8); Carbon Dioxide 28 mEq/L (19-29); Chloride 100 mEq/L (98-109); Glucose 132 mg/dL (70-99); Osmolality,Calculated 296 (280-300); Potassium 3.9 mEq/L (3.5-4.5); Sodium 139 mEq/L (136-145); eGFR For African Americans > 60 (> 60); eGFR For Non-African Americans 52 (> 60)
[2017-04-29 05:06] LABS: Platelet Estimate Normal (Normal)
[2017-04-29 05:07] LABS: Polychromasia 1+ (Not Present)
[2017-04-29] MEDS: niCARdipine 40 MG/200 ML MLS IVC SCH ×4 (05:13→23:23)
--- NOTE | 2017-04-29 07:26 | Cardiothoracic Progress Note ---
Date of Encounter: 04/29/17 Time of Encounter: 07:24 - Assessment and plan (1) Pericardial effusion with cardiac tamponade Current Visit: Yes Status: Acute The patient is recovering well from his median sternotomy with evacuation of pericardial hematoma and closure of left atrial appendage perforation. His pulmonary function is slowly improving. He will continue with aggressive pulmonary toilet. The assessment and plan as outlined above was discussed with the patient and/or family members who expressed understanding and agreement. All questions were answered. - Subjective Procedure(s) Performed: POD#4 S/P Median sternotomy with evacuation of pericardial hematoma and closure of left atrial appendage perforation Interval history: The patient remained hemodynamically stable overnight. His pulmonary function is improving slowly. Vital Signs, Last 4 Hours Temp Pulse Resp BP Pulse Ox 04/29/17 06:00 101 23 122/87 98 04/29/17 05:00 107 12 124/78 93 04/29/17 04:55 16 98 04/29/17 04:00 98.5 F 109 11 120/84 97 [place] Flow Rate Oxygen Flow Rate (LPM) 10 Clinical Data, last 8 Hours Output, Urine Amount 400 Output, Urine Amount 450 Weight 04/27/17 04/28/17 04/29/17 23:59 23:59 23:59 Weight 96.02 kg 96 kg 95.617 kg - Physical Examination General: Conversant, No Apparent Distress Neck: No JVD, Normal carotid pulses Cardiac: Reg Rate and Rhythm, Normal S1 and S2, No Murmur Incision: No signs of infection, Dry/intact dressing Sternum: Stable Lungs: Normal Breath Sounds, No Wheeze, Rales, Rhonchi Neuro: Alert and responsive, No focal deficits noted Vascular: Normal capillary refill Extremities: No Clubbing, No Cyanosis, No Edema - Labs 04/29/17 04:04 04/29/17 04:04 Lab Results, Last 24 hours 04/28/17 04/29/17 04/29/17 17:07 04:04 04:04 WBC 5.5 Hgb 8.8 L D 8.7 L Hct 24.9 L 24.8 L Plt Count 161 Sodium 139 Potassium 3.9 Chloride 100 Carbon Dioxide 28 BUN 31 H Creatinine 1.36 H Glucose 132 H Calcium 9.2 - VTE Reasons for not Prescribing Prophylaxis: Not indicated-Anticoagulated or INR therapeutic Documentation of Mechanical Device: Graduated compression elastic hosiery Consult Discharge Plan - Plan Referrals: Ana Cristina Hall DO [Primary Care Provider] -
[2017-04-29] MEDS: Insulin LISPRO 300 UNITS/3 ML VIAL SQ SCH ×2 (07:37→12:03)
[2017-04-29] MEDS: Ranolazine 500 MG TAB.ER.12H PO SCH (07:47)
[2017-04-29] MEDS: NIFEdipine XL (24 HR) 30 MG TAB.ER.24 PO SCH (07:48)
[2017-04-29] MEDS: Furosemide 20 MG/2 ML VIAL IVP SCH (07:48)
[2017-04-29] MEDS: Pantoprazole 40 MG VIAL IVP SCH (07:48)
[2017-04-29] MEDS: Cyanocobalamin (B-12) 1,000 MCG TABLET PO SCH (07:49)
[2017-04-29] MEDS: Isosorbide MONOnitrate (24 HR) 30 MG TAB.ER.24H PO SCH (07:49)
[2017-04-29] MEDS: Aspirin 81 MG TAB.CHEW PO SCH (07:49)
[2017-04-29] MEDS: Budesonide/Formoterol 160/4.5 MDI IH SCH ×2 (08:09→20:44)
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
--- NOTE | 2017-04-29 09:26 | Pulmonology Progress Note ---
<Sisi Hernandez - Last Filed: 04/29/17 13:50> Date of Encounter: 04/29/17 Time of Encounter: 09:26 Assessment and Plan (1) COPD (chronic obstructive pulmonary disease) Current Visit: Yes Status: Chronic Patient has a history of COPD that he is just now beginning to manage at home. He does take 2 inhalers and Symbicort. Patient recently had a thoracotomy with pericardial hematoma removal and left atrial appendage perforation fixed. Most of his respiratory status is likely due to hypoventilation due to the recent thoracotomy. He states he does have some pain whenever he takes a deep breath. He is reporting a brown colored sputum today. We have sent this for culture. He is not febrile. His lung sounds are relatively clear however diminished in the bases. His oxygen saturation increases significantly when he is up at bedside. We will encourage this. We will also encourage incident spirometry. We will encourage the use of CPAP while lying down. Plan: Symbicort Albuterol and DuoNeb's Incentive spirometry O2 as needed Cardiology primary. Sputum culture pending If patient continues to have a productive cough of brown sputum or if the culture begins to grow consider adding Levaquin. Qualifiers: Qualified Code(s): J44.9 - Chronic obstructive pulmonary disease, unspecified (2) CAD (coronary artery disease) Current Visit: Yes Status: Chronic Cardiology managing Qualifiers: Coronary Disease-Associated Artery/Lesion type: [place] artery [place] vs. transplanted heart: [place] heart Associated angina: without angina Qualified Code(s): I25.10 - Atherosclerotic heart disease of [place] coronary artery without angina pectoris (3) PAF (paroxysmal atrial fibrillation) Current Visit: No Status: Acute Cardiology managing (4) Pericardial effusion with cardiac tamponade Current Visit: Yes Status: Acute Cardiology managing Subjective Principal diagnosis: afib, pericardial effusion Interval history: No events overnight. Patient up at bedside eating breakfast at this time. States that he is using his incentive spirometry. Lung sounds relatively clear. He has no complaints. Still maintaining an oxygen saturation in the low to mid 90s on a Oxiimask while in bed and mid 90s while sitting up and on a nasal cannula. It still appears as if the patient is having his hypoxemic events due to hypoventilation secondary to the recent thoracotomy. Objective PUL Vital signs: Last Vital Signs Temp 98.1 F 04/29/17 07:00 Pulse 101 04/29/17 09:00 Resp 14 04/29/17 09:00 BP 109/84 04/29/17 09:00 Pulse Ox 91 04/29/17 09:00 General appearance: no acute distress Eyes: nonicteric ENT: oropharynx moist Neck: supple Effort: normal Cardiovascular: irregular rhythm Gastrointestinal: normoactive bowel sounds, soft, non-tender, non-distended Integumentary: normal Extremities: no cyanosis, no edema, pink and warm, pulses normal, other ( Clubbing to fingers bilaterally.) Musculoskeletal: no deformities Gait: normal gait, normal posture normal mental status, non-focal exam, pupils equal and round mood appropriate, affect normal Results - Laboratory Findings CBC and BMP: 04/29/17 04:04 04/29/17 04:04 ABG ABG pH 7.41 pH Units (7.32-7.45) 04/27/17 10:36 ABG pCO2 45 mmHg (35-45) 04/27/17 10:36 ABG pO2 68 mmHg (85-104) L 04/27/17 10:36 ABG O2 Saturation 94 % (95-98) L 04/27/17 10:36 PT/INR, D-dimer PT 14.7 Seconds (9.4-12.1) H 04/26/17 02:39 Abnormal lab findings: Abnormal lab results RBC 2.70 M/mcL (4.19-5.50) L 04/29/17 04:04 Hgb 8.7 g/dL (12.9-16.9) L 04/29/17 04:04 Hct 24.8 % (37.5-50.1) L 04/29/17 04:04 MPV 9.1 fL (9.4-12.4) L 04/29/17 04:04 Nucleated RBCs/100 WBC 1.4 /100 WBC (0) H 04/29/17 04:04 Polychromasia 1+ (Not Present) A 04/29/17 04:04 PT 14.7 Seconds (9.4-12.1) H 04/26/17 02:39 APTT 49.8 Seconds (26.0-36.0) H 04/26/17 02:39 ABG pO2 68 mmHg (85-104) L 04/27/17 10:36 ABG HCO3 28.5 mEQ/L (21-27) H 04/27/17 10:36 ABG Total CO2 29.9 mEq/L (20-26) H 04/27/17 10:36 ABG O2 Saturation 94 % (95-98) L 04/27/17 10:36 ABG Base Excess 3.5 mEq/L (-2.0 to 3.0) H 04/27/17 10:36 BUN 31 mg/dL (8-26) H 04/29/17 04:04 Creatinine 1.36 mg/dL (0.72-1.25) H 04/29/17 04:04 Est GFR (Non-Af Amer) 52 (> 60) L 04/29/17 04:04 Glucose 132 mg/dL (70-99) H 04/29/17 04:04 POC Glucose 137 (58-89) H 04/29/17 07:33 - Clinical Findings Intake & Output: Intake & Output 04/28/17 04/29/17 04/29/17 23:59 07:59 15:59 Intake Total 920 / 920 360 / 360 Output Total 1450 / 1450 850 / 850 150 / 150 Balance -530 / -530 -850 / -850 210 / 210 Weight 95.617 kg - VTE Reasons for not Prescribing Prophylaxis: Not indicated-Anticoagulated or INR therapeutic Documentation of Mechanical Device: Graduated compression elastic hosiery Consult Discharge Plan - Plan Referrals: Ana Cristina Hall DO [Primary Care Provider] - <Pb Curtis - Last Filed: 04/29/17 14:10> Date of Encounter: 04/29/17 Objective PUL Vital signs: Last Vital Signs Temp 98.3 F 04/29/17 12:08 Pulse 102 04/29/17 14:00 Resp 20 04/29/17 14:00 BP 94/56 04/29/17 14:00 Pulse Ox 96 04/29/17 14:00 Ventilator Settings Ventilator Settings: Ventilator Settings, Last 8 Hours Ventilator Mode VC+ Results - Laboratory Findings CBC and BMP: 04/29/17 04:04 04/29/17 04:04 ABG ABG pH 7.41 pH Units (7.32-7.45) 04/27/17 10:36 ABG pCO2 45 mmHg (35-45) 04/27/17 10:36 ABG pO2 68 mmHg (85-104) L 04/27/17 10:36 ABG O2 Saturation 94 % (95-98) L 04/27/17 10:36 PT/INR, D-dimer PT 14.7 Seconds (9.4-12.1) H 04/26/17 02:39 Abnormal lab findings: Abnormal lab results RBC 2.70 M/mcL (4.19-5.50) L 04/29/17 04:04 Hgb 8.7 g/dL (12.9-16.9) L 04/29/17 04:04 Hct 24.8 % (37.5-50.1) L 04/29/17 04:04 MPV 9.1 fL (9.4-12.4) L 04/29/17 04:04 Nucleated RBCs/100 WBC 1.4 /100 WBC (0) H 04/29/17 04:04 Polychromasia 1+ (Not Present) A 04/29/17 04:04 PT 14.7 Seconds (9.4-12.1) H 04/26/17 02:39 APTT 49.8 Seconds (26.0-36.0) H 04/26/17 02:39 ABG pO2 68 mmHg (85-104) L 04/27/17 10:36 ABG HCO3 28.5 mEQ/L (21-27) H 04/27/17 10:36 ABG Total CO2 29.9 mEq/L (20-26) H 04/27/17 10:36 ABG O2 Saturation 94 % (95-98) L 04/27/17 10:36 ABG Base Excess 3.5 mEq/L (-2.0 to 3.0) H 04/27/17 10:36 BUN 31 mg/dL (8-26) H 04/29/17 04:04 Creatinine 1.36 mg/dL (0.72-1.25) H 04/29/17 04:04 Est GFR (Non-Af Amer) 52 (> 60) L 04/29/17 04:04 Glucose 132 mg/dL (70-99) H 04/29/17 04:04 POC Glucose 140 (58-89) H 04/29/17 11:59 - Microbiology Findings Microbiology Findings: Microbiology, Last 48 Hours 04/29/17 10:00 Sputum Culture - Final Sputum - Clinical Findings Intake & Output: Intake & Output 04/28/17 04/29/17 04/29/17 23:59 07:59 15:59 Intake Total 920 / 920 360 / 360 Output Total 1450 / 1450 850 / 850 250 / 250 Balance -530 / -530 -850 / -850 110 / 110 Weight 95.617 kg - Attending Attestation I examined this patient and my medical decision-making was reviewed with the Resident Physician. I agree with the documented findings, disposition and treatment plan as described except to the extent set forth below. Patient seen and examined at bedside Labs, radiology, chart personally reviewed. All lines examined without evidence of infection. Management was reviewed during multidisciplinary critical care rounds. Mr. Yoon continues to progress. Last hypoxemia today plan to continue lung recruitment with incentive spirometry and out of bed to chair along with ambulation Continue chronic management of COPD- he is having increased sputum production that appears purulent we have sent this down for culture because consider antimicrobial therapy based upon culture sensitivities Hemoglobin is stable status post transfusion yesterday Continue diuresis for pulmonary edema Stable for transfer to 2 (medical step down unit) for ongoing care
[2017-04-29] MEDS ORDERED: Naloxone 0.4 MG/ML INJ IVP PRN (14:26)
[2017-04-29] MEDS ORDERED: Dextrose Gel 15 GM PO PRN ×2 (14:26)
[2017-04-29] MEDS ORDERED: Nitroglycerin 0.4 MG TAB.SUBL SL PRN (14:26)
[2017-04-29] MEDS ORDERED: *HR* Dextrose 50 % in Water (Syg) 50 ML SYRINGE IVP PRN (14:26)
[2017-04-29] MEDS ORDERED: Magnesium Sulfate 2 GM in D5% in Water 100 ML IVPB PRN (14:26)
[2017-04-29] MEDS ORDERED: *HR* Morphine 2 MG/ML SYRINGE IVP PRN ×2 (14:26)
[2017-04-29] MEDS ORDERED: D5% in Water 1,000 ML IVC PRN (14:26)
[2017-04-29] MEDS ORDERED: Acetaminophen 325 MG TABLET PO PRN (14:26)
[2017-04-29] MEDS ORDERED: Insulin LISPRO 300 UNITS/3 ML VIAL SQ PRN (14:26)
[2017-04-29] MEDS: Norepinephrine 4 MG in D5% in Water 250 ML IVC SCH (14:59)
[2017-04-29] MEDS ORDERED: Insulin LISPRO 300 UNITS/3 ML VIAL SQ SCH ×2 (16:30→21:00)
--- NOTE | 2017-04-29 17:12 | Invasive Diagnostic Lab ---
Ablation Name: Armando Yoon Date of Study: 04/25/2017 : 1950 Ht: 175.3 cm / 69.0 in Medical Record#: [id number] Age: 67 Wt: 90.5 kg / 199.5 lb Gender: Male BSA: 2.06 Location: Fluoro Dose: 1042 mGy BMI: 29.45 Operating Physician: Marco Antonio Vargas MD, [facility] Referring MD: Ana Cristina Hall DO Procedures Performed: Procedure (ICE) INTRACARDIAC ECHO AT OP ARTERIAL LINE INSERTION Comp EP Study w/ Ablation by Pulm Vein Isolation MAPPING ATRIAL/VENTRICULAR TRANSEPTAL PUNCTURE Indications: Description Atrial arrhythmia Impressions: ABLATION * Successful ablation of A-Fib. Recommendations: Follow up in arrhythmia clinic in 1 months, or sooner if there are any symptoms or concerns. Procedure Description: After obtaining fully informed consent the patient was brought to the electrophysiology laboratory in the fasting, post absorptive state. The patient was prepped in the usual sterile fashion. Lidocaine 2% was used for local anesthesia. Using the Seldinger technique access was obtained in the left femoral artery, right femoral vein, and left femoral vein. A total of 4 sheaths were placed. Multipolar electrode catheters were placed in the appropriate chambers under fluoroscopic guidance. An ICE Catheter was inserted and intracardiac ECHO was performed. Trans septal access was obtained the with a trans septal needle. The sheath was then exchanged over a pigtail wire and the flex cath sheath was inserted in to the left atrium. A Mapping catheter was then inserted and the left atrium mapped. The pulmonary veins were isolated and ablated in order LSPV no PV potentials, LIPV loss of PV potentials, RIPV loss of PV potentials, RSPV no PV potentials (see details on table below). Esophageal temperatures were monitored throughout the case. The phrenic nerve was paced during ablation of the pulmonary veins to assure no loss of capture. EP Study Data ABLATION Ablation Data Rhythm - During Ablation Lesion Site Max Temp. Duration Attemps Successful A-fib LUPV -48 180 No A-fib LUPV -48 120 No A-fib LLPV -38 180 No A-fib LLPV -41 180 No A-fib RLPV -42 180 No A-fib RLPV -59 140 No A-fib RLPV -59 180 No nsr RLPV -60 131 Yes No No Catheter Locations Intracardiac Site Sheath Type Sheath Size Catheter Type Access Site LA Cryo Ablation Balloon Right Femoral Vein Procedure Medications Time Medication Dose Unit Route Given By 02:44 PM Lidocaine 2% 2 mL Subcutaneous Marco Antonio Vargas MD, FACC 03:29 PM Heparin 8200 units Intravenous Shiela Bach RN 04:43 PM Heparin 2000 units Intravenous Shiela Bach RN Contrast: Isovue 100 ml. Complications: No complications occurred during the procedure. Complication None Updated by Marco Antonio Vargas MD, FACC on 04/29/2017 5:07:05 PM electronically signed on 04/29/2017 5:08:10 PM with status of Final
[2017-04-29] MEDS: Ondansetron 4 MG/2 ML VIAL IVP PRN (20:47)
[2017-04-29] MEDS: *HR* OxyCODONE/APAP 5/325 TABLET PO PRN (20:47)
[2017-04-29] MEDS ORDERED: Melatonin 3 MG TABLET PO SCH (21:00)
[2017-04-29] MEDS ORDERED: Furosemide 20 MG/2 ML VIAL IVP SCH (21:00)
[2017-04-29] MEDS ORDERED: Isosorbide MONOnitrate (24 HR) 30 MG TAB.ER.24H PO SCH (21:00)
[2017-04-29] MEDS ORDERED: Ranolazine 500 MG TAB.ER.12H PO SCH (21:00)
[2017-04-30] MEDS: *HR* OxyCODONE/APAP 5/325 TABLET PO PRN (00:55)
[2017-04-30] MEDS: Ondansetron 4 MG/2 ML VIAL IVP PRN (03:08)
[2017-04-30] MEDS ORDERED: Naloxone 0.4 MG/ML INJ ONE (03:21)
[2017-04-30] MEDS: Naloxone 0.4 MG/ML INJ IVP ONE ×2 (03:25→07:21)
[2017-04-30 03:35] LABS: ABG Base Excess -1.8 mEq/L (-2.0 to 3.0); ABG HCO3 28.2 mEQ/L (21-27); ABG Oxygen Saturation 40 % (95-98); ABG TCO2 30.7 mEq/L (20-26)
[2017-04-30 03:36] LABS: Blood Gas FiO2 100 %
[2017-04-30] MEDS: 0.9 % Sodium Chloride 1,000 ML IVC SCH ×3 (03:40→05:30)
[2017-04-30] MEDS ORDERED: 0.9 % Sodium Chloride 1,000 ML ONE ×2 (03:41→05:17)
[2017-04-30 03:47] LABS: ABG PCO2 81 mmHg (35-45); ABG PH 7.15 pH Units (7.32-7.45); ABG PO2 31 mmHg (85-104)
--- NOTE | 2017-04-30 04:11 | Event Note ---
Date of Encounter: 04/30/17 Time of Encounter: 03:00 Procedure note Endotracheal Intubation Date: 04/30/2017 Time: 3:00 Indication: Acute hypoxic respiratory failure. Consent was implied due to the emergent nature of this procedure and fast clinical decompensation. Attending: Shravan Max MD A time-out was completed verifying correct patient, procedure, site, positioning , and special equipment. The patient was placed in a flat position. Sedation was obtained using Etomidate 20mg. The oropharynx was suctioned and abundant fluid bilious secretions were aspirated. The patient was then easily ventilated using an ambu bag. The [employer]/ MAC 4 BLADE was used and inserted into the oropharynx at which time there was a Grade 1 view of the vocal cords. A 7.5-moroccan endotracheal tube was inserted and visualized going through the vocal cords. The stylette was removed. Colorimetric change was visualized on the CO2 meter. Breath sounds were heard in both lung pool equally. The endotracheal tube was placed at 24 cm, measured at the teeth. The endotracheal tube was also aspirated there was a moderate amount of brown bilious secretions. A chest x-ray was ordered to assess for pneumothorax and verify endotrachealtube placement. Estimated Blood Loss: 0 ml Soon after the intubation the patient lost pulse and went into PEA. Patient was successfully resuscitated. Please see critical care note following this procedure note.
--- NOTE | 2017-04-30 04:45 | Event Note ---
Date of Encounter: 04/30/17 Time of Encounter: 04:34 I was called by the patient's nurse because the patient became hypoxic and had difficulty breathing on BiPAP, became lethargic. Upon arrival the patient was found lying supine, obtunded, nonresponsive and shallow breathing. Heart is regular S1-S2 with no murmurs. Lung sounds are coarse and rhonchorous with expiratory wheezes. Abdomen is distended and soft. There is a sternotomy incision covered with dressing. We will obtain an ABG which showed acute hypoxic and hypercarbic respiratory failure with respiratory acidosis. On review of his recently administer medication I noted that the patient received 6 mg of morphine at 2 AM. Due to concern for opiate toxicity in respiratory depression caused by morphine we administered 0.8 mg of Narcan. The patient's mental status did not improve and he remained hypoxic. He started vomiting into the BiPAP mask. We aspirated the oropharynx and inserted a nasogastric tube which returned a large amount of bilious fluid. Patient's oxygen saturation continued to drop and he was emergently intubated. Please see procedure note. After the intubation the patient became bradycardic. We administered 1 mg of atropine. His heart rate normalized but his blood pressure then started to drop. He became pulseless. We initiated ACLS. We administered 1 mg of epinephrine at the beginning of resuscitation efforts. After 1 cycle of CPR we administered 1 mg of epinephrine and the patient regained pulse. Chest compressions were stopped. We inserted an intraosseous line was started on bolus of fluids. We started intraosseous epinephrine drip. Blood pressure remained low but he maintained MAP>60. I obtained a chest x-ray which showed good placement of the endotracheal tube and possible right base aspiration. ABG post intubation showed slight worsening and hypercarbia and improvement in oxygenation. Based on this I recommended increasing the respiratory rate to 18 and will repeat an ABG in 1 hour. I also noted worsening metabolic and respiratory acidosis and therefore we will administer 1 mEq per kilogram of sodium bicarbonate. We placed a right IJ central line and that procedure as described separately. I have performed at bedside echocardiogram which to me appears to show a small amount of pericardial fluid, moderate hypokinesis of the anterior wall with quasi-normal contraction of the septum. Plan: Acute hypoxic and hypercarbic respiratory failure: Continue with mechanical ventilation, increased rate to clear CO2. We will repeat ABG in 1 hour. Shock: We will continue with epinephrine drip. Start phenylephrine if second pressor as needed. Pericardial tamponade and enters the differential due to recent pericardial window and repair of left atrial appendage defect. Will obtain official echocardiogram stat to evaluate for possibility of cardiogenic shock. Check lactic acid to assess for septic shock. Aspiration pneumonia: We will start broad-spectrum IV antibiotics. Anemia: We will transfuse 1 unit PRBC. Altered mental status: Once the patient is hemodynamically stable we will obtain head CT to rule out CVA. The patient remains in a critical condition due to shock, altered mental status , profound respiratory failure and acidemia. I have performed 60 minutes of critical care time which involved decision making of high complexity to assess and manipulate organ function including cardiovascular and respiratory system and prevent further decline and deterioration leading to permanent organ system damage and possibly . Critical care time was spent at the bedside and included examining the patient, frequently reevaluating vitals and clinical condition, ordering medication and laboratory testing, reviewing blood test results and imaging studies and ordering medications. Time spent performing any procedures and teaching was not included in the critical care time and will be billed separately.
[2017-04-30 04:51] LABS: ABG Base Excess -5.1 mEq/L (-2.0 to 3.0); ABG HCO3 24.9 mEQ/L (21-27); ABG Oxygen Saturation 89 % (95-98); ABG PO2 78 mmHg (85-104); ABG TCO2 27.5 mEq/L (20-26); Blood Gas FiO2 100 %
[2017-04-30 04:52] LABS: ABG PCO2 84 mmHg (35-45); ABG PH 7.08 pH Units (7.32-7.45)
[2017-04-30] MEDS ORDERED: EPINEPHrine 1 MG in D5% in Water 250 ML IVC SCH (05:00)
[2017-04-30] MEDS ORDERED: Phenylephrine 10 MG in D5% in Water 250 ML IVC SCH (05:30)
--- NOTE | 2017-04-30 05:49 | Procedure Note ---
<Mykel Xiong - Last Filed: 04/30/17 05:47> Date of procedure: 04/30/17 Pre-op diagnosis: cardiogenic shock Post-op diagnosis: same Procedure: A time-out was completed verifying correct patient, procedure, site, positioning , and special equipment if applicable. The patient was placed in a dependent position appropriate for central line placement based on the vein to be cannulated. The patients left neck was prepped and draped in sterile fashion. 1 % Lidocaine was used to anesthetize the surrounding skin area. A triple lumen 9- [place] Cordis catheter was introduced into the the internal jugular using the Seldinger technique and under ultrasound guidance. The catheter was threaded smoothly over the guide wire and appropriate blood return was obtained. Each lumen of the catheter was evacuated of air and flushed with sterile saline. The catheter was then sutured in place to the skin and a sterile dressing applied. Perfusion to the extremity distal to the point of catheter insertion was checked and found to be adequate. Dr. Max was present for the entire procedure. Anesthesia: local Surgeon: Mykel Xiong Leather Sorter: Shravan Max Estimated blood loss (cc): 10 Pathology: none sent Condition: critical Disposition: ICU <Shravan Max - Last Filed: 04/30/17 06:13> Procedure: I supervised the resident physician, Dr. Xiong performing this procedure and I was available throughout the procedure. Dr. Xiong performed the procedures skillfully and there were no complications. I agree with the documentation above. Consent was implied due to the emergent nature of this procedure and rapid clinical deterioration.
[2017-04-30] MEDS ORDERED: Norepinephrine 4 MG in D5% in Water 250 ML IVC SCH (06:00)
[2017-04-30 06:07] VITALS: BP 85/53
[2017-04-30] MEDS: Norepinephrine 4 MG in D5% in Water 250 ML IVC SCH (06:09)
[2017-04-30] MEDS ORDERED: 0.9 % Sodium Chloride 1,000 ML IVC SCH (06:15)
[2017-04-30 06:21] LABS: Red Cell Distribution Width 13.8 % (11.5-14.5)
[2017-04-30 06:24] LABS: Hematocrit 23.6 % (37.5-50.1); Hemoglobin 7.7 g/dL (12.9-16.9); Immature Platelets 2.6 % (1.1-6.1); Mean Corpuscular HGB Conc 32.6 g/dL (31.6-35.5); Mean Corpuscular Hemoglobin 31.7 pg (28.0-33.3); Mean Corpuscular Volume 97.1 fL (83.0-100.0); Mean Platelet Volume 8.7 fL (9.4-12.4); Nucleated Red Blood Cells 36.5 /100 WBC (0); Platelet Count 174 K/mcL (140-400); Red Blood Count 2.43 M/mcL (4.19-5.50)
[2017-04-30 06:25] LABS: INR 1.4
[2017-04-30] MEDS ORDERED: WATER IVC SCH (06:30)
[2017-04-30] MEDS ORDERED: EPINEPHRINE IVC SCH (06:30)
[2017-04-30] MEDS ORDERED: D5 IVC SCH (06:30)
[2017-04-30 06:35] LABS: Albumin/Globulin Ratio 0.8 (1.1-2.2); Bilirubin,Total 0.7 mg/dL (0.2-1.2); Globulin 2.5 g/dL (2.4-3.5); Potassium 4.1 mEq/L (3.5-4.5); Total Protein 4.5 g/dL (6.0-8.3)
[2017-04-30] MEDS ORDERED: methylPREDNISolone 125 MG/2 ML VIAL IVP ONE (06:42)
[2017-04-30] MEDS ORDERED: Phenylephrine 20 MG in D5% in Water 500 ML IVC SCH (06:45)
[2017-04-30 06:50] LABS: Lymphocytes # 0.5 K/mcL (0.6-4.6); Monocytes # 0.3 K/mcL (0.0-1.3); Neutrophils # 0.1 K/mcL (1.6-8.9); Platelet Estimate Normal (Normal)
[2017-04-30 06:52] LABS: Polychromasia 2+ (Not Present)
[2017-04-30 06:57] LABS: ABG Base Excess -0.9 mEq/L (-2.0 to 3.0); ABG HCO3 28.9 mEQ/L (21-27); ABG Oxygen Saturation 75 % (95-98); ABG PO2 53 mmHg (85-104); ABG TCO2 31.6 mEq/L (20-26); Blood Gas FiO2 100 %
[2017-04-30 06:58] LABS: ABG PCO2 87 mmHg (35-45); ABG PH 7.13 pH Units (7.32-7.45)
[2017-04-30] MEDS ORDERED: Hydrocortisone Sodium Succ 100 MG/2 ML VIAL ONE (07:01)
[2017-04-30] MEDS ORDERED: *HR* Midazolam HCl 2 MG/2 ML VIAL ONE ×2 (07:01→07:04)
[2017-04-30] MEDS ORDERED: *HR* FentaNYL (PF) 100 MCG/2 ML VIAL ONE (07:01)
[2017-04-30 07:04] LABS: Magnesium 1.7 mg/dL (1.6-2.6); Phosphorous 7.5 mg/dL (2.3-4.7)
[2017-04-30] MEDS ORDERED: *HR* FentaNYL (PF) 100 MCG/2 ML VIAL IVP ONE ×2 (07:13→07:23)
[2017-04-30] MEDS ORDERED: Sodium Bicarbonate 50 MEQ/50 ML VIAL IVP ONE (07:13)
[2017-04-30] MEDS ORDERED: *HR* Midazolam HCl 2 MG/2 ML VIAL IVP ONE (07:13)
[2017-04-30] MEDS ORDERED: FentaNYL (PF) 1,000 MCG in 0.9 % Sodium Chloride 80 ML IVC SCH ×2 (07:15)
[2017-04-30] MEDS ORDERED: Vecuronium 50 MG in 0.9 % Sodium Chloride 150 ML IVC SCH ×3 (07:15→07:30)
[2017-04-30] MEDS ORDERED: Hydrocortisone Sodium Succ 100 MG/2 ML VIAL IVP ONE (07:15)
[2017-04-30] MEDS: niCARdipine 40 MG/200 ML MLS IVC SCH (07:22)
[2017-04-30] MEDS ORDERED: 0.9 % Sodium Chloride 500 ML ONE (07:25)
[2017-04-30] MEDS: Budesonide/Formoterol 160/4.5 MDI IH SCH (07:40)
--- NOTE | 2017-04-30 07:56 | Event Note ---
Date of Encounter: 04/30/17 Time of Encounter: 07:51 Upon my arrival to the ICU I found Mr. Yoon in severe shock with severe hypoxemic hypercarbic respiratory failure with ARDS physiology overnight events are reviewed it appears the patient had an aspiration event around the time of intubation for progressive respiratory failure. Patient was on high doses of 3 vasopressors and had oxygen saturations in the low to mid 70s via pulse oximetry. This was confirmed by arterial blood gas analysis given degree of acidosis and hypotension I instructed the nursing staff to push bicarbonate as a temporizing measure while patient was uncoupled from the ventilator circuit and was started to be bagged, unfortunately oxygen saturation dropped further and patient went into cardiac arrest one cycle of ACLS was performed with rhythm being pulseless electrical activity and he had yazidi of a perfusing rhythm subsequently. He was continued to undergo bagging with improvement in oxygenation into the mid 70s and was hooked back up to the respiratory circuit with planned for deep sedation and neuromuscular blockade and prone positioning unfortunately clinical course continued to deteriorate and oxygen saturation fell again and patient lost rhythm for the second time but at this time his and family at bedside instructed us to stop explaining that this is against the patient's wishes to have heroic measures performed at this level. The ACLS protocol was aborted and patient . I offered emotional support for the family and have reached out to the binding bench worker for spiritual comfort
--- NOTE | 2017-04-30 07:59 | Death Note ---
Pronouncement Note - Date and Time of Date of : 04/30/17 Time of : 07:35 - PCOD Preliminary cause of : Cardiac arrest - Summary Additional details: Patient with aspiration event leading to severe hypoxemic hypercarbic respiratory failure and septic shock with multiorgan system failure severe metabolic acidosis underwent ACLS 2 and the third loss of perfusing rhythm family instructed as to abort all other aggressive measures at the patient's primary determined wishes - Additional Data Confirmation of : no pulse, no respirations, no heart sounds, pupils fixed and dilated Family: at bedside Attending physician: Nivia Hodge MD Autopsy requested?: No questioned documents examiner notified?: No Organ bank notified?: No Advance directives: Yes
--- NOTE | 2017-04-30 08:04 | Death Note ---
Discharge Sum: Summary - Date and Time Date of admission: 04/25/17 19:27 Date of : 04/30/17 Time of : 07:35 - Summary Details: This is a 67-year-old gentleman who is admitted for pericardial effusion after ablation procedure was complicated by atrial perforation requiring emergent sernotomy with evacuation and chest tube placement for tamponade physiology. Subsequently patient did relatively well for several days had some moderate postoperative hypoxemia secondary to atelectasis and underlying severity of lung disease. 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 30 clinical course deteriorated markedly resulting in decision to proceed with intubation unfortunately this event was complicated by aspiration and would set into motion a cascade of events including multiorgan system failure shock and refractory hypoxemia complicated by cardiac arrest 3 despite maximal ventilatory and vasopressor support at the third loss of perfusing rhythm the family decided to transition to comfort measures and the patient - Additional Data Confirmation of as documented by pronouncing clinician: no pulse, no respirations, no heart sounds, pupils fixed and dilated Attending physician: Nivia Hodge MD Autopsy requested?: No architectural examiner notified?: No Organ bank notified?: No Advance directives: Yes Hospice patient?: No Discharge Sum: Diag - PCOD Probable Cause of : Cardiac arrest Discharge Sum: Prov - Provider Primary care physician: Kimmy Manuel Admitting clinician: Nivia Hodge Attending physician on admission: Nivia Hodge Consults: 04/25/17 22:13 Consult to Cardiac Rehabilitation-Phase1 [CONS] Routine Comment: Reason for Consult: Post open heart Call Completed: Yes 04/27/17 08:40 Consult to Pulmonary Rehab [CONS] Routine Reason for Consult: Postoperative artery insufficiency. Time Notified: 08:35 Call Completed: Yes 04/28/17 07:13 Consult to Transportation Department Supervisor [CONS] Routine Reason for SW Consult: [facility] rehabilitation placement at discharge 04/29/17 08:01 Consult to Occupational Therapy [CONS] Routine Comment: Evaluate, develop and implement POC Reason for Consult: Evaluate for inpatient rehabilitation placement. Consult to Physical Therapy [CONS] Routine Comment: Evaluate, develop and implement POC Reason for Consult: Evaluate for inpatient rehabilitation placement. 04/30/17 07:39 Consult to Electrophysiology (EP) [CONS] Stat Consulting Provider: Electrophysiology [place] Reason for Consult: s/p afib ablation, cardiac arrest Call Completed: Yes Pronouncing clinician: Pb Curtis
[2017-04-30] MEDS ORDERED: Cyanocobalamin (B-12) 1,000 MCG TABLET PO SCH (09:00)
[2017-04-30] MEDS ORDERED: Aspirin 81 MG TAB.CHEW PO SCH (09:00)
[2017-04-30] MEDS ORDERED: NIFEdipine XL (24 HR) 30 MG TAB.ER.24 PO SCH (09:00)
[2017-04-30] MEDS ORDERED: Pantoprazole 40 MG VIAL IVP SCH (09:00)
== END 2017-04-30 07:35 | disposition expired | DRG 907 ==
LOC: INVDIALAB 11:15 → ICNU 19:27
PROVIDERS: ADMIT Thoracic Surgery (Cardiothoracic Vascular Surgery); ATTEND Thoracic Surgery (Cardiothoracic Vascular Surgery)